=== PATIENT | male | born 1950 | race Asian ===

== ENCOUNTER 2021-11-04 19:44 | Inpatient (IN) | payer BC ==
[~2021-11-04] VITALS: Ht 170.2 cm; Wt 75.3 kg
--- NOTE | 2021-11-04 19:50 | NUR ---
Placed in room 8 . Placed on director cardiac, blood pressure machine and pulse oximeter. To gown for exam. Side rails up. Report given to ERIKA WATERS(REG).
[2021-11-04 19:56] VITALS: BP_SYST 133
[2021-11-04] MEDS ORDERED: NACL 0.9% 1,000 ML IV ONE (20:15)
[2021-11-04] MEDS ORDERED: ACETAMINOPHEN 325 MG TABLET PO ONE (20:15)
[2021-11-04] MEDS ORDERED: cefTRIAXone 1 GM IVPB PREMIX 50 ML IV ONE (20:15)
[2021-11-04 20:42] LABS: RED BLOOD CELL COUNT(AUTO) 2.25 MIL/uL (4.2-6.2); RED CELL DISTRIBUTION WIDTH 14.7 % (9.0-15.0)
[2021-11-04] MEDS ORDERED: TAMS-11 PO (20:56)
[2021-11-04] MEDS ORDERED: DONE5TAB3 PO (20:56)
[2021-11-04] MEDS ORDERED: OMEP40CA20 PO (20:56)
[2021-11-04] MEDS ORDERED: CELE200C PO (20:56)
[2021-11-04 20:57] LABS: ANION GAP 8 (5-15); CALCIUM 7.9 mg/dL (8.4-11.0); CHLORIDE 93 mmol/L (98-107); CREATININE 1.02 mg/dL (0.55-1.30); GLUCOSE 154 mg/dL (70-99); POTASSIUM 3.4 mmol/L (3.5-5.1); UREA NITROGEN, BLOOD 12 mg/dL (8-21)
--- NOTE | 2021-11-04 21:00 | NUR ---
ERMD at bedside.
[2021-11-04 21:14] LABS: MEAN CORPUSCULAR VOLUME 85 fL (79.0-98.0); PLATELET COUNT (AUTO) 82 K/uL (130-430); WHITE BLOOD COUNT (AUTO) 13.6 K/uL (4.8-10.8)
[2021-11-04 21:15] LABS: GFR AFRICAN AMERICAN 93 mL/min (>90)
[2021-11-04 21:18] LABS: ALANINE AMINOTRANSFERASE 38 U/L (12-78); ALBUMIN 2.2 g/dL (3.4-4.8); ASPARTATE AMINOTRANSFERASE 106 U/L (10-37); TOTAL BILIRUBIN 1.7 mg/dL (0.0-1.0)
[2021-11-04 21:22] LABS: HEMATOCRIT 19.1 % (36-54)
[2021-11-04] MEDS ORDERED: methylPREDNISolone SOD SUCC/PF 62.5 MG/ML VIAL IVP ONE (21:45)
[2021-11-04] MEDS ORDERED: NS 500 ML IV ONE (21:45)
[2021-11-04 21:47] LABS: ATYPICAL LYMPHOCYTES % 5 % (0-0); BAND % (MANUAL) 2 % (0-6); EOSINOPHILS % (MANUAL) 1 % (0-7); LYMPHOCYTES % (MANUAL) 13 % (20-46); MONOCYTES % (MANUAL) 5 % (0-11)
--- NOTE | 2021-11-04 22:18 | NUR ---
Pt taken off NR and placed on 3L NC around 2100. Pt 96% at this time, no resp distress noted. Pt oral temp went from 102.9 to 101.4 1 hr s/p Tylenol admin, ERMD made aware.
[2021-11-04] MEDS ORDERED: D5/0.45 NS 1,000 ML IV ONE (22:45)
--- NOTE | 2021-11-04 22:47 | NUR ---
Pt swabbed for MRSA and swab sent to lab.
--- NOTE | 2021-11-04 22:47 | NUR ---
Admitting Dr. May refused to input his own orders, gave telephone admitting orders to RN. Orders input.
--- NOTE | 2021-11-04 22:48 | NUR ---
Admit bed requested Patient will be admitted to care of . Admitted to ICU unit. Diagnosis SOB, fever, ALOC Inpatient (Yes or No) yes Observation (Yes or No) no Orientation concerns or request close to nursing station (Yes or No) yes Covid Status negative On vent or bipap no Isolation requirements no Needs a sitter no From Home (Yes or if No enter name of facility) yes Requires Dialysis (Yes or No) no Med Rec Completed (Yes of No) pending
[2021-11-04 23:00] LABS: INR 1.1 (0.80-1.20); PROTHROMBIN TIME 10.8 SECS (9.5-12.5)
--- NOTE | 2021-11-04 23:22 | NUR ---
Informed consent signed for PRBC transfusion d/t low hematocrit. Type and screen collected by laboratory mechanic helper.
[2021-11-05] VITALS (16 sets, daily range): BP systolic 109–134
[2021-11-05 02:22] LABS: BILIRUBIN,URINE NEGATIVE (NEGATIVE); BLOOD, URINE NEGATIVE (NEGATIVE); CLARITY/URINE CLEAR (CLEAR); COLOR,URINE YELLOW (YELLOW); GLUCOSE,URINE NEGATIVE (NEGATIVE); KETONES,URINE TRACE (NEGATIVE); LEUKOCYTE ESTERASE ,URINE NEGATIVE (NEGATIVE); NITRITE, URINE NEGATIVE (NEGATIVE); PH,URINE 6.5 (5.0-8.0); PROTEIN URINE NEGATIVE (NEGATIVE); UROBILINOGEN,URINE 0.2 (0.2-1.0)
--- NOTE | 2021-11-05 02:44 | NUR ---
1 unit PRBC started at 0135, no adverse reactions noted. 2nd 20g IV started on right forearm. Pt resting in bed with breathing even and unlabored on 3L NC, 97%.
--- NOTE | 2021-11-05 03:50 | NUR ---
1 unit of PRBC finished at 0340, no reactions noted. VSS.
--- NOTE | 2021-11-05 06:26 | NUR ---
Pt resting in bed with VSS, receiving D5 1/2NS @75cc/hr. Denies pain at this time. Pt noted more oriented than upon arrival. Pt using urinal. at bedside.
--- NOTE | 2021-11-05 08:33 | NUR ---
SBAR REPORT GIVEN TO SUSAN RN FOR CONTINUE OF CARE. PT WAS TRANSPORTED VIA BED WITH RN AND EMT. PT A&OX3, NO DISTRESS NOTED. AT BEDSIDE WITH PT.
--- NOTE | 2021-11-05 09:00 | NUR ---
Report received from JT Ortiz for continuity of care. Patient in stable condition. Arrived by sarahyrbear. Alert and oriented x4. Respiration even and unlabored. Patient is ambulatory with steady gait to hospital bed. IV fluids running as noted. Patient belongings accounted for. No skin issues noted. Oriented patient to hospital unit. Vital signs stable. No c/o pain. Patient on oxygen 3L NC and O2 saturation is 96%. Will continue to monitor. Call light within reach.
[2021-11-05 09:13] LABS: HEMATOCRIT 25.1 % (36-54); MEAN CORPUSCULAR VOLUME 84 fL (79.0-98.0); PLATELET COUNT (AUTO) 78 K/uL (130-430); RED BLOOD CELL COUNT(AUTO) 2.99 MIL/uL (4.2-6.2); RED CELL DISTRIBUTION WIDTH 14.7 % (9.0-15.0); WHITE BLOOD COUNT (AUTO) 16.1 K/uL (4.8-10.8)
--- NOTE | 2021-11-05 10:29 | NUR ---
Spoke with Dr. aCbrera, COLE, regarding situation. No new orders at this time.
[2021-11-05 10:30] LABS: BASOPHILS % (AUTO) 0.3 % (0.0-2.0); LYMPHOCYTES # (AUTO) 2.1 K/uL (1.0-5.5); LYMPHOCYTES % (AUTO) 12.6 % (20.5-51.5); NEUTROPHILS # (AUTO) 8.9 K/uL (1.8-7.7)
[2021-11-05 10:31] LABS: MONOCYTES # (AUTO) 5.5 K/uL (0.0-1.0)
[2021-11-05] MEDS: NACL 0.9% 1,000 ML IV SCH ×2 (10:45→11:05)
--- NOTE | 2021-11-05 11:20 | NUR ---
Spoke with Dr. Boo regarding clarification of orders. New orders noted
[2021-11-05] MEDS: D5NS 1,000 ML IV SCH ×3 (11:27→22:25)
[2021-11-05 11:39] LABS: CALCIUM 7.7 mg/dL (8.4-11.0); CREATININE 0.88 mg/dL (0.55-1.30); PHOSPHORUS 2.7 mg/dL (2.7-4.5); POTASSIUM 3.4 mmol/L (3.5-5.1)
[2021-11-05] MEDS: ALBUMIN HUMAN 25% 100 ML IV SCH ×3 (11:40→22:26)
[2021-11-05] MEDS: INSULIN REGULAR, HUMAN 100 UNITS/ML, 3 ML VIAL (humuLIN R) SUBCUT PRN ×3 (11:49→21:14)
[2021-11-05 11:50] LABS: THYROID STIMULATING HORMONE 0.28 uIu/mL (0.34-4.82); URIC ACID 2.8 mg/dL (2.4-7.0)
--- NOTE | 2021-11-05 12:00 | NUR ---
Spoke with Dr. May regarding lab values and patient status. New orders noted and carried out.
--- NOTE | 2021-11-05 12:21 | NUR ---
Paged Dr. May regarding lab results and orders.
[2021-11-05] MEDS ORDERED: POTASSIUM CHLORIDE 20 MEQ TAB.PRT.SR PO ONE (13:00)
[2021-11-05 13:33] LABS: BILIRUBIN,URINE NEGATIVE (NEGATIVE); BLOOD, URINE NEGATIVE (NEGATIVE); CLARITY/URINE CLEAR (CLEAR); COLOR,URINE YELLOW (YELLOW); GLUCOSE,URINE 2+ (NEGATIVE); KETONES,URINE TRACE (NEGATIVE); LEUKOCYTE ESTERASE ,URINE NEGATIVE (NEGATIVE); NITRITE, URINE NEGATIVE (NEGATIVE); PROTEIN URINE TRACE (NEGATIVE)
[2021-11-05] MEDS ORDERED: PIPERACILLIN/TAZO 3.375/DEX-IS 50 ML IV ONE (14:15)
[2021-11-05 14:50] LABS: BACTERIA,URINE FEW /HPF (None Seen); RBC,URINE 0-3 /HPF (0-3); WBC,URINE 0-3 /HPF (0-3)
[2021-11-05 16:03] LABS: NEUTROPHILS % (AUTO) 54.1 % (40.0-70.0)
--- NOTE | 2021-11-05 17:53 | NUR ---
CONSULTATION PAGED/CALLED Reason for Consultation: LOW HEMOGLOBIN, SOB, FEVER Person Who was Notified: ANDRE Consulting Physician: DR HINKLE Cloth Spreader Screen Printing Specialty: HEMATOLOGY Ordering Physician: DR TRAVIS
[2021-11-05] MEDS: PIPERACILLIN/TAZO 3.375/DEX-IS 50 ML IV SCH (17:58)
--- NOTE | 2021-11-05 19:49 | NUR ---
Report given to shift lab technician RN for continuity of care. Patient in stable condition. No distress noted.
[2021-11-06] VITALS (31 sets, daily range): BP systolic 93–184
[2021-11-06] MEDS ORDERED: ETOMIDATE 20 MG/ 10 ML VIAL (AMIDATE) ONE
[2021-11-06] MEDS ORDERED: ROCURONIUM BROMIDE 10 MG/ML (ZEMURON) ONE
[2021-11-06] MEDS: PIPERACILLIN/TAZO 3.375/DEX-IS 50 ML IV SCH ×5 (00:37→23:30)
--- NOTE | 2021-11-06 03:50 | NUR ---
pATIENT STILL HAS SOB ON EXERTION. ENCOURAGED TO GET SOME REST AND CALM DOWN. PATIENT ABLE TO VERBALIZED UNDERSTANDING .
--- NOTE | 2021-11-06 04:15 | NUR ---
DR. SHENG DE ANDA PAGED AT THIS TIME FOR ORDERS. SPOKE WITH QUENTIN AT THE EXCHANGE.
--- NOTE | 2021-11-06 04:20 | NUR ---
PATIENT HAS SHORTNESS OF BREATH, PAGED RESPIRATORY THERAPIST AND INCREASED THE O2 OF THE PATIENT. PAGED TWICE AND WAITING FOR HIM TO CALL BACK. HOB ELEVATED OF THE PATIENT. HR AND BLOOD PRESSURES GOING UP. NO PRN FOR ANTI-ANXIETY ORDERED. WAITING FOR THE TO CALL BACK. BLOOD PRESSURE 169/90. HR 124- 136/MIN.
--- NOTE | 2021-11-06 04:52 | NUR ---
DR. PATRICIO 2ND PAGE TO FOR ORDERS. SPOKE WITH NASEEM AT THE EXCHANGE.
[2021-11-06] MEDS ORDERED: DEXMEDETOMIDINE HCL 200 MCG in NS 48 ML IV PRN (05:15)
--- NOTE | 2021-11-06 05:15 | NUR ---
DR. PATRICIO CALLED BACK, MADE AWARE OF PATIENT'S SHORTNESS OF BREATHING, TACHYCARDIA AND ELEVATED BLOOD PRESSURE PLUS PATIENT IS VERY ANXIOUS. ORDERED TO START PRECEDEX. NO ATIVAN NOR PAIN MEDICATION ORDERED.
[2021-11-06] MEDS ORDERED: DEXMEDETOMIDINE HCL 200 MCG/2 ML VIAL IV ONE (05:21)
--- NOTE | 2021-11-06 05:51 | NUR ---
DR. THADDEUS DE ANDA PAGED AT THIS TIME FOR ORDERS. SPOKE WITH AMARA AT THE EXCHANGE.
--- NOTE | 2021-11-06 06:55 | NUR ---
RT NOTES Found pt tachypneic 50S and tachycardic, high 140s. Placed on bipap /6 BUR 20 100% FIO2. Improvement noted. RR 44 H.R 130. Alarms set and audible. Bipap to red outlet.
--- NOTE | 2021-11-06 06:59 | NUR ---
DR. STEPHANIE DE ANDA MADE AWARE OF PT CONDITION. HR 140S, BP 162/88, PT WITH AUDIBLE CRACKLES AND SHOWING S/S RESPIRATORY DISTRESS. PER MD PLACE PT ON BIPAP AND GIVE LASIX 40MG IVP X1 NOW. WILL CARRY OUT ORDERED.
[2021-11-06] MEDS ORDERED: FUROSEMIDE 40 MG/4 ML VIAL IVP ONE (07:00)
[2021-11-06] MEDS ORDERED: FUROSEMIDE 40 MG/4 ML VIAL ONE (07:02)
[2021-11-06] MEDS: D5NS 1,000 ML IV SCH ×2 (07:05→17:42)
--- NOTE | 2021-11-06 07:20 | NUR ---
RT NOTES (post lasix) Pt continue to tolerate bipap. RR 33 H.R 110.
[2021-11-06 07:36] LABS: BASOPHILS # (AUTO) 0.2 K/uL (0.0-0.2); BASOPHILS % (AUTO) 0.7 % (0.0-2.0); EOSINOPHILS % (AUTO) 0.1 % (0.0-4.0); HEMATOCRIT 23.5 % (36-54); LYMPHOCYTES # (AUTO) 2.5 K/uL (1.0-5.5); MEAN CORPUSCULAR VOLUME 88 fL (79.0-98.0); MONOCYTES # (AUTO) 4.8 K/uL (0.0-1.0); NEUTROPHILS # (AUTO) 13.4 K/uL (1.8-7.7); PLATELET COUNT (AUTO) 76 K/uL (130-430); RED BLOOD CELL COUNT(AUTO) 2.68 MIL/uL (4.2-6.2); RED CELL DISTRIBUTION WIDTH 15.5 % (9.0-15.0); RETICULOCYTE COUNT 5.2 % (0.5-1.5); WHITE BLOOD COUNT (AUTO) 20.8 K/uL (4.8-10.8)
[2021-11-06 07:40] LABS: ALBUMIN 2.8 g/dL (3.4-4.8); CALCIUM 7.9 mg/dL (8.4-11.0); CREATININE 0.85 mg/dL (0.55-1.30); POTASSIUM 3.6 mmol/L (3.5-5.1); TOTAL BILIRUBIN 1.3 mg/dL (0.0-1.0)
[2021-11-06 08:21] LABS: NEUTROPHILS % (AUTO) 64.2 % (40.0-70.0)
[2021-11-06] MEDS ORDERED: OMEPRAZOLE Non-Formulary 20 MG CAPSULE.DR PO SCH (09:00)
--- NOTE | 2021-11-06 09:25 | NUR ---
LE: 09-DR BROWN AT BEDSIDE TO ASSESS PT FOR RESPIRATORY DISTRESS AND CONFUSION. STATED PT WILL BE INTUBATED DUE TO HIGH RESPIRATORY Rate. 30 ROCURONIUM WAS GIVEN 50 MG VIA IV PUSH. 31 ETOMIDATE WAS GIVEN 20 MG IV PUSH. 35 DR BROWN INTUBATED PT, 7.5 AND 24 AT THE LIP.
[2021-11-06] MEDS ORDERED: PROPOFOL DRIP 100 ML IV ONE (09:29)
--- NOTE | 2021-11-06 09:35 | NUR ---
RT NOTES With BM device with 100% O2, Pt was preoxygenated before being intubated by Dr Pham with 7.5 ETT secured at 24cm lipline. Bilateral b/s/chest rise noted. CO2 detector changed to yellow. Pt was bronch right after intubation, brochial lavage performed, collected, endorsed to lab. JT Ortiz aware. Pt to vent @ 0945 AC 20 450 +5 100%. Sat in the 80s. Dr Pham aware, inserting central line. Ordered to increase PEEP to 8 as long as b/p is stable. Will draw abg. vent to red outlet. Alarms are set and audible. will monitor pt.
[2021-11-06] MEDS ORDERED: MORPHINE 2 MG/ML INJ. SYRINGE IVP PRN (11:15)
[2021-11-06] MEDS ORDERED: NALOXONE HCL 0.4 MG/ML AMP (NARCAN) IVP PRN (11:15)
--- NOTE | 2021-11-06 11:26 | NUR ---
RT NOTES Per dr's order, vent to AC 24 Vt 500, FIO2 to 0.90 per titration order.
--- NOTE | 2021-11-06 11:30 | NUR ---
called Dr Pham to get new orders for pt. pt not tolerating propofol due to low bp. orders were given to start versed and morphine drip and d/c propofol.
[2021-11-06] MEDS: PANTOPRAZOLE SODIUM 40 MG TAB PO SCH (11:52)
[2021-11-06] MEDS: TAMSULOSIN HCL 0.4 MG CAP PO SCH (11:52)
[2021-11-06] MEDS: ACETAMINOPHEN 325 MG TABLET PO PRN (11:52)
[2021-11-06] MEDS ORDERED: NACL 0.9% 500 ML IV SCH (12:45)
--- NOTE | 2021-11-06 13:06 | NUR ---
Blood Smear - Spoke with a associate medical director regarding blood smear ordered by Dr. May. The technologist said she woul dadd it onto the CBC from today and read it and that no order needed to be entered.
[2021-11-06 13:21] LABS: TOTAL IRON BIND. CAPACITY 145 ug/dL (250-450)
[2021-11-06] MEDS ORDERED: HYDROCORTISONE SOD SUCC 100 MG/2 ML VIAL ONE (13:24)
[2021-11-06] MEDS ORDERED: NOREPINEPHRINE 4 MG/4 ML VIAL IV ONE ×4 (13:36→19:24)
--- NOTE | 2021-11-06 14:10 | NUR ---
Dietitian Recommendations * If/when medically appropriate, consider Vital AF 1.2 at 65 ml/hr (goal rate), Free Water Flush: 250 ml Q6h via NGT Provides: 1872 kcal/day, 117 gm protein/day, and 2265 ml free water/day Meets: 95% of estimated caloric needs, 104% of lower end of estimated caloric needs, and 98% of upper end of estimated fluid needs LP, MS, RD Please refer to Nutrition Assessment for details. Addendum: 11/06/21 at [address] Amended: Links added.
[2021-11-06] MEDS: NACL 0.9% 1,000 ML IV SCH ×2 (14:22→21:53)
--- NOTE | 2021-11-06 15:25 | NUR ---
rt and bedside to change fio2 settings from 90 to 60%.
--- NOTE | 2021-11-06 15:30 | NUR ---
RT NOTES Charge nurse made aware of ETT position per CXR result.
--- NOTE | 2021-11-06 15:48 | NUR ---
RT NOTES Per ABG result and titration order, FIO2 TO 0.60. RN RITA made aware. will monitor pt.
--- NOTE | 2021-11-06 16:18 | NUR ---
DR BROWN CALLED TO FOLLOW UP ON PT, STATED LEVOPHED TOO HIGH START PT ON YAMILET AND TITRATE LEVOPHED LOWER THAN .20 MCG. ORDER PLACED WAITING ON PHARMACY.
[2021-11-06] MEDS: VANCOMYCIN HCL 1,000 MG in NS 250 ML IV SCH (17:00)
[2021-11-06] MEDS: MICAFUNGIN SODIUM 100 MG in NS 100 ML IV SCH (17:51)
[2021-11-06 18:49] LABS: BILIRUBIN,URINE NEGATIVE (NEGATIVE); BLOOD, URINE NEGATIVE (NEGATIVE); CLARITY/URINE CLEAR (CLEAR); COLOR,URINE YELLOW (YELLOW); GLUCOSE,URINE 1+ (NEGATIVE); KETONES,URINE NEGATIVE (NEGATIVE); LEUKOCYTE ESTERASE ,URINE NEGATIVE (NEGATIVE); NITRITE, URINE NEGATIVE (NEGATIVE); PROTEIN URINE TRACE (NEGATIVE)
[2021-11-06] MEDS: PHENYLEPHRINE HCL 50 MG in NS 245 ML IV PRN (18:59)
--- NOTE | 2021-11-06 19:10 | NUR ---
Received report from JT Ortiz and assumed patient care.
--- NOTE | 2021-11-06 19:48 | NUR ---
Received critical lab value of procalcitonin (please see emr for further details), will call MD for further instructions.
--- NOTE | 2021-11-06 19:50 | NUR ---
Called Dr. Blackman for further instructions, will wait for call back. Left voicemail in the service call.
[2021-11-06 19:56] LABS: RBC,URINE NONE SEEN /HPF (0-3); WBC,URINE 0-3 /HPF (0-3)
[2021-11-06 19:57] LABS: BACTERIA,URINE None Seen /HPF (None Seen); MUCUS,URINE None Seen /LPF (None Seen)
--- NOTE | 2021-11-06 20:10 | NUR ---
Dr. May called for condition updates, MD is aware of critical lab value of procalcitonin (please see emr for further details), MD is aware of sodium levels in 131 (no changes made done on the current gtt). No additional orders noted at the moment, will reinforce if needed throughout the shift.
--- NOTE | 2021-11-06 20:15 | NUR ---
Dr. Suárez rounded at bedside, provided nursing updates no additional orders noted at the moment, will reinforce if needed throughout the shift.
[2021-11-06] MEDS: MORPHINE SULFATE IN 0.9 % NACL 100 ML IV PRN (21:56)
[2021-11-06] MEDS: MIDAZOLAM IN NACL,ISO-OSMOT/PF 100 ML IV PRN (21:57)
--- NOTE | 2021-11-06 22:32 | NUR ---
Reviewing most recent chest XRAY (11/06/21 at 1130ish, please see emr for further details) it states ET is above 6cm above stephanie. Informed RT at bedside, and is aware of the location of the ET tube, upon assessment patient is taking 400-500 volumes, and saturation ranging from 96-98%. Paged Dr. Malone to inform pulmo., and Dr. Malone called back. MD is aware of the patient's ET location, and current situation of volumes and most current location, as well as vital signs. Per MD Ok to leave ET in place, and obtain chest xray in the AM for further evaluation. No additional orders noted at the moment, MD is aware of NA 131 level, no new orders noted at the moment. Will reinforce if needed throughout the shift. biomedical photographer (Caitlyn) is aware.
[2021-11-06] MEDS: INSULIN REGULAR, HUMAN 100 UNITS/ML, 3 ML VIAL (humuLIN R) SUBCUT PRN (23:36)
[2021-11-07] VITALS (28 sets, daily range): BP systolic 88–143
[2021-11-07] MEDS: PHENYLEPHRINE HCL 50 MG in NS 245 ML IV PRN ×5 (00:17→21:40)
[2021-11-07] MEDS ORDERED: PHENYLEPHRINE HCL 10 MG/ML VIAL (NEOSYNEPHRINE) ONE (01:53)
[2021-11-07] MEDS: D5NS 1,000 ML IV SCH ×2 (02:57→13:15)
--- NOTE | 2021-11-07 03:15 | NUR ---
Changed patient's linens, and performed CHG bath, patient tolerated the big turns. No complications noted at the moment, will reinforce if needed throughout the shift.
[2021-11-07] MEDS: PIPERACILLIN/TAZO 3.375/DEX-IS 50 ML IV SCH ×4 (05:25→23:55)
[2021-11-07] MEDS: VANCOMYCIN HCL 1,000 MG in NS 250 ML IV SCH ×2 (05:25→15:37)
[2021-11-07] MEDS: NACL 0.9% 1,000 ML IV SCH ×2 (06:33→17:15)
[2021-11-07 07:33] LABS: INR 1.2 (0.80-1.20); PROTHROMBIN TIME 11.8 SECS (9.5-12.5)
[2021-11-07 08:06] LABS: FOLATE (FOLIC ACID) 6.3 ng/mL (>3.0)
[2021-11-07 08:47] LABS: HEMATOCRIT 22.3 % (36-54); MEAN CORPUSCULAR VOLUME 88 fL (79.0-98.0); PLATELET COUNT (AUTO) 55 K/uL (130-430); RED BLOOD CELL COUNT(AUTO) 2.52 MIL/uL (4.2-6.2); RED CELL DISTRIBUTION WIDTH 15.5 % (9.0-15.0); WHITE BLOOD COUNT (AUTO) 21.7 K/uL (4.8-10.8)
[2021-11-07 08:50] LABS: ALBUMIN 1.3 g/dL (3.4-4.8); BILIRUBIN,DIRECT 0.5 mg/dL (0.0-0.3); CALCIUM 7.7 mg/dL (8.4-11.0); CREATININE 0.96 mg/dL (0.55-1.30); POTASSIUM 4.2 mmol/L (3.5-5.1); TOTAL BILIRUBIN 1.4 mg/dL (0.0-1.0)
[2021-11-07] MEDS: PANTOPRAZOLE SODIUM 40 MG TAB PO SCH (09:00)
[2021-11-07] MEDS: TAMSULOSIN HCL 0.4 MG CAP PO SCH (09:00)
[2021-11-07] MEDS ORDERED: NACL 0.9% 500 ML IV SCH (12:45)
--- NOTE | 2021-11-07 13:33 | NUR ---
1125 ETT PUSHED IN FROM 25 TO 27CM LL. ANDREA BS, VOLUMES ACHIEVED, CXR DONE, ETT SECURE AND PATENT. DR BROWN AWARE. Addendum: 11/07/21 at 1338 by Zara Moore RT Amended: Links added.
[2021-11-07 15:29] LABS: LYMPHOCYTES % (MANUAL) 8 % (20-46)
[2021-11-07 15:30] LABS: BASOPHILS % (MANUAL) 0 % (0-2); EOSINOPHILS % (MANUAL) 0 % (0-7); MONOCYTES % (MANUAL) 15 % (0-11)
[2021-11-07 15:34] LABS: BLASTS, MANUAL % 10 % (0-0)
[2021-11-07] MEDS: SUCRALFATE 1 GM/10 ML UDC GT SCH (15:34)
[2021-11-07] MEDS: MICAFUNGIN SODIUM 100 MG in NS 100 ML IV SCH (15:35)
[2021-11-07] MEDS: INSULIN REGULAR, HUMAN 100 UNITS/ML, 3 ML VIAL (humuLIN R) SUBCUT PRN (17:21)
--- NOTE | 2021-11-07 19:10 | NUR ---
Received report from JT Florian and assumed patient care.
--- NOTE | 2021-11-07 20:00 | NUR ---
Patient's temperature via axillary is 103F, and via temporal 101.7F, cooling measures are applied and tylenol medication will be given. Will inform MD about the findings, no additional complications noted at the moment.
--- NOTE | 2021-11-07 20:15 | NUR ---
Patient's family members are at bedside, provided nursing updates via online hat cutter. No additional questions noted at the moment, will reinforce if needed throughout the shift.
[2021-11-07] MEDS: ACETAMINOPHEN 325 MG TABLET PO PRN (21:12)
[2021-11-07] MEDS: MORPHINE SULFATE IN 0.9 % NACL 100 ML IV PRN (21:38)
[2021-11-07] MEDS: MIDAZOLAM IN NACL,ISO-OSMOT/PF 100 ML IV PRN (21:39)
--- NOTE | 2021-11-07 22:00 | NUR ---
Patient's temperature is trending up despite tylenol medication given, cooling blanket is on place, and rectal temperature probe is in place. Core temperature is in place, and reading 104F, will continue to monitor temperature and primer charger (Caitlyn) is aware. No additional complications noted at the moment, will reinforce if needed throughout the shift.
[2021-11-08] VITALS (32 sets, daily range): BP systolic 79–128
[2021-11-08] MEDS: INSULIN REGULAR, HUMAN 100 UNITS/ML, 3 ML VIAL (humuLIN R) SUBCUT PRN
[2021-11-08] MEDS: NACL 0.9% 1,000 ML IV SCH ×3 (02:49→22:44)
[2021-11-08] MEDS: PHENYLEPHRINE HCL 50 MG in NS 245 ML IV PRN ×3 (02:50→18:29)
--- NOTE | 2021-11-08 03:33 | NUR ---
Dr. Syed rounded at bedside, MD is aware of patient not having any bowel movement as of yet, will wait for medications to be verified on meditech. MD also made aware of tube feed recommendation of nutrition to change tube feed rate, will make changes on order. No additional orders noted at the moment, will reinforce if needed throughout the shift.
[2021-11-08] MEDS: VANCOMYCIN HCL 1,000 MG in NS 250 ML IV SCH ×2 (05:03→18:00)
[2021-11-08] MEDS: PIPERACILLIN/TAZO 3.375/DEX-IS 50 ML IV SCH (05:03)
[2021-11-08] MEDS: SUCRALFATE 1 GM/10 ML UDC GT SCH ×2 (06:22→17:00)
[2021-11-08] MEDS: ACETAMINOPHEN 325 MG TABLET PO PRN ×3 (08:00→18:52)
[2021-11-08] MEDS: TAMSULOSIN HCL 0.4 MG CAP PO SCH (08:57)
[2021-11-08 09:34] LABS: BASOPHILS # (AUTO) 0.2 K/uL (0.0-0.2); BASOPHILS % (AUTO) 1.4 % (0.0-2.0); EOSINOPHILS % (AUTO) 0.2 % (0.0-4.0); LYMPHOCYTES # (AUTO) 2.8 K/uL (1.0-5.5); LYMPHOCYTES % (AUTO) 19.3 % (20.5-51.5); MEAN CORPUSCULAR VOLUME 90 fL (79.0-98.0); MONOCYTES # (AUTO) 2.8 K/uL (0.0-1.0); MONOCYTES % (AUTO) 19.2 % (1.7-9.3); NEUTROPHILS # (AUTO) 8.8 K/uL (1.8-7.7); NEUTROPHILS % (AUTO) 59.9 % (40.0-70.0); PLATELET COUNT (AUTO) 61 K/uL (130-430); RED BLOOD CELL COUNT(AUTO) 2.28 MIL/uL (4.2-6.2); RED CELL DISTRIBUTION WIDTH 15.9 % (9.0-15.0); WHITE BLOOD COUNT (AUTO) 14.7 K/uL (4.8-10.8)
[2021-11-08 10:11] LABS: INR 1.2 (0.80-1.20); PROTHROMBIN TIME 11.8 SECS (9.5-12.5)
[2021-11-08] MEDS: MEROPENEM 1 GM in NS 100 ML IV SCH ×2 (13:24→21:34)
[2021-11-08 15:07] LABS: HEMATOCRIT 20.4 % (36-54)
[2021-11-08] MEDS: MIDAZOLAM IN NACL,ISO-OSMOT/PF 100 ML IV PRN (15:40)
[2021-11-08] MEDS: MICAFUNGIN SODIUM 100 MG in NS 100 ML IV SCH (17:00)
[2021-11-08 18:11] LABS: ERYTHROCYTE SEDIMENTATION RATE 65 MM/HR (0-15)
[2021-11-08 18:43] LABS: C-REACTIVE PROTEIN QUANT 29.5 mg/dL (0-0.5); CALCIUM 7.3 mg/dL (8.4-11.0); CREATININE 0.9 mg/dL (0.55-1.30); POTASSIUM 3.9 mmol/L (3.5-5.1)
--- NOTE | 2021-11-08 19:10 | NUR ---
Received report from JT Martinez and assumed patient care.
[2021-11-08] MEDS: IPRATROPIUM/ALBUTEROL SULFATE 3 ML AMPUL.NEB (DUONEB) INH SCH (19:55)
--- NOTE | 2021-11-08 20:00 | NUR ---
Patient's core temperature is reading 100F>, cooling blanket and cooling measures are in place, checked patient's skin under blanket and no skin breakdown noted at the moment, and will reinforce if needed throughout the shift. Patient's call light is within reach, unable to comprehend teaching at the moment due to patient being sedated and intubated. Will reinforce if needed throughout the shift.
[2021-11-08] MEDS: HYDROCORTISONE SOD SUCC 100 MG/2 ML VIAL IVP SCH (21:34)
[2021-11-09] VITALS (30 sets, daily range): BP systolic 87–133
[2021-11-09] MEDS: INSULIN REGULAR, HUMAN 100 UNITS/ML, 3 ML VIAL (humuLIN R) SUBCUT PRN ×3 (00:44→18:34)
--- NOTE | 2021-11-09 01:00 | NUR ---
Patient is in process of blood administration per MD order (please see blood administration paperwork for further details), no complications noted at the moment, and will reinforce if needed throughout the shift.
[2021-11-09] MEDS: IPRATROPIUM/ALBUTEROL SULFATE 3 ML AMPUL.NEB (DUONEB) INH SCH ×4 (01:30→19:51)
[2021-11-09] MEDS ORDERED: PHENYLEPHRINE HCL 10 MG/ML VIAL (NEOSYNEPHRINE) ONE (03:27)
[2021-11-09] MEDS: PHENYLEPHRINE HCL 50 MG in NS 245 ML IV PRN (03:32)
[2021-11-09] MEDS: VANCOMYCIN HCL 1,000 MG in NS 250 ML IV SCH ×2 (04:13→17:45)
--- NOTE | 2021-11-09 05:15 | NUR ---
Changed patient's linens, performed CHG bath on patient, and placed cooling blanket under patient with flat sheet on top. Patient tolerated the big turns, no complications noted during the process. Will reinforce if needed throughout the shift.
[2021-11-09] MEDS: MEROPENEM 1 GM in NS 100 ML IV SCH ×3 (05:51→21:51)
[2021-11-09] MEDS: HYDROCORTISONE SOD SUCC 100 MG/2 ML VIAL IVP SCH ×3 (05:51→21:51)
[2021-11-09] MEDS: SUCRALFATE 1 GM/10 ML UDC GT SCH ×2 (06:11→17:42)
[2021-11-09 07:16] LABS: ALBUMIN 1.7 g/dL (3.4-4.8); CALCIUM 7.3 mg/dL (8.4-11.0); CREATININE 0.84 mg/dL (0.55-1.30); PHOSPHORUS 1.8 mg/dL (2.7-4.5); POTASSIUM 4.4 mmol/L (3.5-5.1); TOTAL BILIRUBIN 1.6 mg/dL (0.0-1.0)
[2021-11-09 08:15] LABS: HEMATOCRIT 23.9 % (36-54); MEAN CORPUSCULAR VOLUME 89 fL (79.0-98.0); RED CELL DISTRIBUTION WIDTH 16.1 % (9.0-15.0); WHITE BLOOD COUNT (AUTO) 19.3 K/uL (4.8-10.8)
[2021-11-09] MEDS: NACL 0.9% 1,000 ML IV SCH ×2 (09:15→19:15)
--- NOTE | 2021-11-09 09:25 | NUR ---
Pt noted to have a DTI to coccyx. Photo taken and foam dressing applied. Repositioned to side with pillow suppoer. Feet lifted off bed with pillows. Pt tolerating titration down of the neosynephrine. Huong urine in the logan bag. CVP 4 with good waveform.
[2021-11-09 09:39] LABS: PLATELET COUNT (AUTO) 44 K/uL (130-430)
--- NOTE | 2021-11-09 13:15 | NUR ---
Suctioned a large amount of tube feeding from pts mouth. Tube feeding residual 200ccc and tube feeds turned off. HOB up.
[2021-11-09 13:19] LABS: ERYTHROCYTE SEDIMENTATION RATE 58 MM/HR (0-15)
[2021-11-09 14:26] LABS: INR 1.3 (0.80-1.20); PROTHROMBIN TIME 12.8 SECS (9.5-12.5)
[2021-11-09 14:44] LABS: BAND % (MANUAL) 1 % (0-6); BASOPHILS % (MANUAL) 0 % (0-2); EOSINOPHILS % (MANUAL) 0 % (0-7); LYMPHOCYTES % (MANUAL) 12 % (20-46); MONOCYTES % (MANUAL) 23 % (0-11); OTHER CELLS,MANUAL % 6 (0-0)
[2021-11-09] MEDS: TAMSULOSIN HCL 0.4 MG CAP PO SCH (14:55)
[2021-11-09 15:17] LABS: C-REACTIVE PROTEIN QUANT 22.3 mg/dL (0-0.5)
--- NOTE | 2021-11-09 15:40 | NUR ---
RT NOTES Found FIO2 @0.50 sat 88%. Pt. appears distress, paradoxical breathing noted. RN aware. Increased FIO2 TO 0.60, Sat improved to 91%
[2021-11-09] MEDS ORDERED: LIDOCAINE 2%, 20 ML MDV ONE (15:55)
--- NOTE | 2021-11-09 17:14 | NUR ---
RT NOTES Saturation on 60% is currently 94-95%.
[2021-11-09] MEDS: MICAFUNGIN SODIUM 100 MG in NS 100 ML IV SCH (17:44)
--- NOTE | 2021-11-09 19:45 | NUR ---
Received report from JT Deluna and assumed patient care.
[2021-11-09 21:06] LABS: MYCOPLASMA PNEUMONIAE IgM <770 U/mL (0-769)
[2021-11-09] MEDS: MORPHINE SULFATE IN 0.9 % NACL 100 ML IV PRN (23:16)
--- NOTE | 2021-11-09 23:59 | NUR ---
Performed CHG bath on patient, patient did not have a bowel movement at the moment, cooling blanket is still under patient, and changed linens as well. No complications noted during the big turns, will reinforce if needed throughout the shift.
[2021-11-10] VITALS (32 sets, daily range): BP systolic 83–120
[2021-11-10] MEDS: INSULIN REGULAR, HUMAN 100 UNITS/ML, 3 ML VIAL (humuLIN R) SUBCUT PRN ×5 (01:03→23:36)
[2021-11-10] MEDS: IPRATROPIUM/ALBUTEROL SULFATE 3 ML AMPUL.NEB (DUONEB) INH SCH ×4 (02:16→19:46)
[2021-11-10] MEDS: VANCOMYCIN HCL 1,000 MG in NS 250 ML IV SCH ×2 (04:32→17:08)
[2021-11-10] MEDS: NACL 0.9% 1,000 ML IV SCH ×2 (04:33→15:15)
[2021-11-10] MEDS: PHENYLEPHRINE HCL 50 MG in NS 245 ML IV PRN (04:41)
[2021-11-10] MEDS: MIDAZOLAM IN NACL,ISO-OSMOT/PF 100 ML IV PRN (04:41)
[2021-11-10] MEDS: MEROPENEM 1 GM in NS 100 ML IV SCH ×3 (05:36→22:47)
[2021-11-10] MEDS: HYDROCORTISONE SOD SUCC 100 MG/2 ML VIAL IVP SCH ×3 (05:36→22:47)
[2021-11-10 06:33] LABS: BASOPHILS # (AUTO) 0.2 K/uL (0.0-0.2); BASOPHILS % (AUTO) 0.6 % (0.0-2.0); HEMATOCRIT 23.6 % (36-54); LYMPHOCYTES # (AUTO) 2.7 K/uL (1.0-5.5); LYMPHOCYTES % (AUTO) 7.2 % (20.5-51.5); MEAN CORPUSCULAR VOLUME 91 fL (79.0-98.0); MONOCYTES # (AUTO) 6.3 K/uL (0.0-1.0); MONOCYTES % (AUTO) 16.8 % (1.7-9.3); NEUTROPHILS # (AUTO) 28.4 K/uL (1.8-7.7); NEUTROPHILS % (AUTO) 75.4 % (40.0-70.0); RED CELL DISTRIBUTION WIDTH 16.5 % (9.0-15.0)
--- NOTE | 2021-11-10 07:05 | NUR ---
Received critical report of elevated wbc and low plt, will call MD for further instructions. No additional orders noted at the moment, will reinforce if needed throughout the shift.
[2021-11-10 07:09] LABS: CALCIUM 7.3 mg/dL (8.4-11.0); CREATININE 0.89 mg/dL (0.55-1.30); POTASSIUM 4.4 mmol/L (3.5-5.1)
[2021-11-10 07:11] LABS: PLATELET COUNT (AUTO) 39 K/uL (130-430)
--- NOTE | 2021-11-10 07:15 | NUR ---
Called Dr. Yadira MD is aware of critical lab results, no new orders noted at the moment, and will follow up with Dr. Mcclain regarding dorys cath placement. No new orders noted at the moment, will reinforce if needed throughout the shift.
[2021-11-10] MEDS ORDERED: HEPARIN SODIUM,PORCINE 5,000 UNITS/ML VIAL ONE ×2 (07:51→08:03)
--- NOTE | 2021-11-10 08:35 | NUR ---
RT NOTES sat. currently 99%, titrated FIO2 to 0.30. Will monitor pt.
[2021-11-10] MEDS: TAMSULOSIN HCL 0.4 MG CAP PO SCH (08:45)
[2021-11-10] MEDS: SUCRALFATE 1 GM/10 ML UDC GT SCH ×2 (08:45→17:09)
[2021-11-10 10:13] LABS: WHITE BLOOD COUNT (AUTO) 37.7 K/uL (4.8-10.8)
[2021-11-10] MEDS: DEXMEDETOMIDINE HCL 200 MCG in NS 48 ML IV PRN (10:32)
[2021-11-10] MEDS: MICAFUNGIN SODIUM 100 MG in NS 100 ML IV SCH (17:07)
--- NOTE | 2021-11-10 19:11 | NUR ---
Dr richardson aware of critical labs within 30 minutes of reports from lab WBC and Procalcitonin Dr Mcclain put in right dorys with no troubles Dr Richardson after dorys was inserted believes that pt may need to be screened for leukemia Pt had medium sized wet stool, temp probe inserted back in pt temperature 98.9-100.4 all day with cooling measures pt desaturates at times and often needs 100% fio2 to boost back up 1850 pt put on 50% for desaturation
--- NOTE | 2021-11-10 19:20 | NUR ---
Received report from AM shift RN, and assumed patient care.
--- NOTE | 2021-11-10 23:00 | NUR ---
CT transferred patient to get CT scan. patient is stable
[2021-11-11] VITALS (33 sets, daily range): BP systolic 94–142
[2021-11-11] MEDS: PHENYLEPHRINE HCL 50 MG in NS 245 ML IV PRN (00:43)
[2021-11-11] MEDS: NACL 0.9% 1,000 ML IV SCH ×3 (00:51→21:03)
[2021-11-11] MEDS: IPRATROPIUM/ALBUTEROL SULFATE 3 ML AMPUL.NEB (DUONEB) INH SCH ×4 (00:51→19:25)
[2021-11-11] MEDS: VANCOMYCIN HCL 1,000 MG in NS 250 ML IV SCH ×2 (04:54→17:54)
[2021-11-11] MEDS: MEROPENEM 1 GM in NS 100 ML IV SCH ×3 (05:35→21:03)
[2021-11-11] MEDS: HYDROCORTISONE SOD SUCC 100 MG/2 ML VIAL IVP SCH ×3 (05:36→21:05)
[2021-11-11] MEDS: INSULIN REGULAR, HUMAN 100 UNITS/ML, 3 ML VIAL (humuLIN R) SUBCUT PRN ×5 (05:40→23:48)
[2021-11-11] MEDS: SUCRALFATE 1 GM/10 ML UDC GT SCH ×2 (06:18→17:55)
--- NOTE | 2021-11-11 07:45 | NUR ---
RT NOTES Dr Mcclain roundrena now, aware of low sat overnight and pt's abnormal breathing pattern.
[2021-11-11 08:16] LABS: ALBUMIN 1.4 g/dL (3.4-4.8); CALCIUM 7.9 mg/dL (8.4-11.0); CREATININE 0.83 mg/dL (0.55-1.30); POTASSIUM 4.6 mmol/L (3.5-5.1); TOTAL BILIRUBIN 1.4 mg/dL (0.0-1.0)
[2021-11-11 08:51] LABS: BASOPHILS # (AUTO) 0.4 K/uL (0.0-0.2); BASOPHILS % (AUTO) 1.4 % (0.0-2.0); HEMATOCRIT 22.6 % (36-54); LYMPHOCYTES # (AUTO) 2.6 K/uL (1.0-5.5); LYMPHOCYTES % (AUTO) 10.6 % (20.5-51.5); MEAN CORPUSCULAR VOLUME 92 fL (79.0-98.0); MONOCYTES # (AUTO) 5.5 K/uL (0.0-1.0); MONOCYTES % (AUTO) 22.2 % (1.7-9.3); NEUTROPHILS # (AUTO) 16.3 K/uL (1.8-7.7); NEUTROPHILS % (AUTO) 65.8 % (40.0-70.0); RED BLOOD CELL COUNT(AUTO) 2.46 MIL/uL (4.2-6.2); WHITE BLOOD COUNT (AUTO) 24.8 K/uL (4.8-10.8)
[2021-11-11] MEDS: TAMSULOSIN HCL 0.4 MG CAP PO SCH (09:24)
[2021-11-11 09:26] LABS: PLATELET COUNT (AUTO) 31 K/uL (130-430)
--- NOTE | 2021-11-11 13:46 | NUR ---
Wasted 65ml versed drip with Charge Leo WATERS into pharm waste
--- NOTE | 2021-11-11 16:05 | NUR ---
Spoke to patient's lion who requested patient be transferred to [facility]. I spoke to [facility] transfer center@ [phone], they are not accepting transfers that are family requests because the hospital is at capacity. The patient's niece, Radha, was notified .
--- NOTE | 2021-11-11 18:50 | NUR ---
Family requesting to transfer to [facility] or [facility], Dr Mcclain updated family regarding status and potential leukemia, critical labs given to Dr May
--- NOTE | 2021-11-11 19:20 | NUR ---
Received report from AM shift RN, and assumed patient care.
[2021-11-11] MEDS: MORPHINE SULFATE IN 0.9 % NACL 100 ML IV PRN (19:53)
[2021-11-11] MEDS: DEXMEDETOMIDINE HCL 200 MCG in NS 48 ML IV PRN ×2 (19:54→22:30)
--- NOTE | 2021-11-11 20:33 | NUR ---
Patient's is at bedside, provided nursing updates via family scheduler conveyor. No questions noted at the moment, will reinforce if needed throughout the shift.
[2021-11-12] VITALS (36 sets, daily range): BP systolic 83–148
[2021-11-12] MEDS: IPRATROPIUM/ALBUTEROL SULFATE 3 ML AMPUL.NEB (DUONEB) INH SCH ×3 (02:01→13:55)
--- NOTE | 2021-11-12 03:00 | NUR ---
Performed CHG bath on patient, turned patient and tolerated the big turns. No complications noted at the moment, and will reinforce if needed throughout the shift.
--- NOTE | 2021-11-12 04:30 | NUR ---
Patient's core temperature ranging from 98F, removed the cooling blankets, and tolerated the big turns. No complications noted at the moment will reinforce if needed throughout the shift.
[2021-11-12] MEDS: VANCOMYCIN HCL 1,000 MG in NS 250 ML IV SCH ×2 (04:39→17:00)
[2021-11-12] MEDS: MORPHINE SULFATE IN 0.9 % NACL 100 ML IV PRN ×3 (04:45→14:38)
[2021-11-12] MEDS: MEROPENEM 1 GM in NS 100 ML IV SCH ×3 (05:30→21:23)
[2021-11-12] MEDS: HYDROCORTISONE SOD SUCC 100 MG/2 ML VIAL IVP SCH ×3 (05:30→21:26)
[2021-11-12] MEDS: INSULIN REGULAR, HUMAN 100 UNITS/ML, 3 ML VIAL (humuLIN R) SUBCUT PRN ×2 (05:32→12:27)
[2021-11-12] MEDS: DEXMEDETOMIDINE HCL 200 MCG in NS 48 ML IV PRN (05:58)
[2021-11-12] MEDS: SUCRALFATE 1 GM/10 ML UDC GT SCH ×2 (06:26→16:56)
[2021-11-12 07:49] LABS: MEAN CORPUSCULAR VOLUME 94 fL (79.0-98.0); RED BLOOD CELL COUNT(AUTO) 2.23 MIL/uL (4.2-6.2); RED CELL DISTRIBUTION WIDTH 17.5 % (9.0-15.0); WHITE BLOOD COUNT (AUTO) 21.2 K/uL (4.8-10.8)
--- NOTE | 2021-11-12 08:00 | NUR ---
MEJIA GOMEZ IS IN CHARGE OVF THIS PATIENT, HE IS ONLY MILDLY RESPONSIVE TO STIMULI AND PALE, DECREASED MORPHINE DRIP TO 7MG FROM 17, STOPPED THE PRECIDEX/AWAIT LAB RESULTS//PT NGT RESIDUAL GREATER THAN 400CC, HELP TF, PT AFEBRILE AND EASILY TOLERATING VENGT WITH MILD COUGH/CONTINUE TO TREAT, AWAIT MDS//MW
[2021-11-12 09:14] LABS: HEMATOCRIT 20.9 % (36-54); PLATELET COUNT (AUTO) 20 K/uL (130-430)
[2021-11-12] MEDS: NACL 0.9% 1,000 ML IV SCH (09:47)
[2021-11-12] MEDS: TAMSULOSIN HCL 0.4 MG CAP PO SCH (09:53)
--- NOTE | 2021-11-12 10:08 | NUR ---
SPOKE TO DR HINKLE AND DR VALDOVINOS/ORDERS TAKEN, PT TO BE STARTED ON REGLN NGT RESIDUAL STILL HIGH EVEN AFTER BEING HELP AND ONE UNIT PRBCS ORDERED//DROPPED MORPHINE TO 2MG/H/INCREASED YAMILET TO .3 MICGS PER HOUR//MW
[2021-11-12] MEDS: 0.45% NACL 1,000 ML IV SCH (11:59)
[2021-11-12 12:54] LABS: BAND % (MANUAL) 9 % (0-6); BASOPHILS % (MANUAL) 0 % (0-2); EOSINOPHILS % (MANUAL) 0 % (0-7); LYMPHOCYTES % (MANUAL) 5 % (20-46); MONOCYTES % (MANUAL) 10 % (0-11)
[2021-11-12 12:55] LABS: BLASTS, MANUAL % 5 % (0-0)
[2021-11-12] MEDS: FLUCONAZOLE 200 mg/ NS 100 ML IV SCH (13:36)
[2021-11-12] MEDS: FUROSEMIDE 40 MG/4 ML VIAL IVP SCH ×2 (13:37→21:24)
[2021-11-12] MEDS: MIDAZOLAM IN NACL,ISO-OSMOT/PF 100 ML IV PRN (14:34)
--- NOTE | 2021-11-12 16:00 | NUR ---
ngt residual still very high, kub done, no mention of bowel problem other than non specific gas, no obstruction documented//coninue reglan, pt diuresed well with lasix//had to go up on fio2 before start of versed, nw fio2 back to 40%//MW
--- NOTE | 2021-11-12 16:25 | NUR ---
Nutrition F/U Admitting Diagnosis: SOB, fever, ALOC Reviewed Pertinent Medical/Surgical Hx Medical Record, ICU rounds, RN Medical History Comment: PMH: COVID-19 pneumonia (August-September 2021 per son report), T2DM, and dementia per physician notes. Pt also found w/ sepsis, lactic acidemia, fevers, acute respiratory failure, acute exacerbation of COPD, CAP, r/o aspiration pneumonia, ALOC, anemia, and thrombocytopenia per physician notes Subjective Information RD rounded to ICU this morning and spoke with pts RN. Per RN, patient residuals @ 250mL and patient has been throwing up 2-3 times per shift, so he TF was off. RN reports he will turn TF on at lower rate 35mL later in the morning and continue to check GRV/signs of intolerance. Per ICU rounds, MD considers possible leukemia. 11/12: spoke with RN who stated patient gastric residuals >400mL and pt vomiting again. Per RN, MD starting pt on Reglan to assist with gastric motility. If patient continues with TF intolerance, a change to lower fiber formulary warranted. Patient is s/p intubation 11/[address] LBM documented 11/10 x 1. Current Diet Order/Nutrition Support: Vital AF 1.2 @ 65mL (goal rate) ml/hr, Free Water Flush: 250mL q4 via GT x 3 days Pertinent Medications SSI, D5NS at 100 ml/hr (408 kcal/day), neosynephrine, IV abx Pertinent Labs Na 152 H, BG 231 H, POC BG 214 H, ALB 1.4 L, WBC 24.8 H, Ca 7.9 L, Phos 1.8 L, Mg 2.4 H Height: 5 feet 7.00 inches Weight: 166 pounds/ 75.296 kg Body Mass Index: 26.00 kg/m2 Usual Weight: 180# -- %UBW: 92 [place]/Adjusted Body Weight: 148#/67.3 kg -- %IBW: 112 Recent Weight Change: Yes - Unintentional 14# wt loss/8% wt change within 2 mo Weight Status: Overweight Gastrointestinal Symptoms Vomiting 11/11-11/12 per ICU RNs Usual Diet At Home Regular diet per son report and nursing nutritional screening Skin Integrity Comment: 11/11 Tom 9: Dry scab R arm, L knee; Erythema posterior buttocks Estimated Energy Expenditure (kcals/day) 1971 (PSU d/t critical illness; Ve: 15.3, Tmax: 37.7'C) Estimated Protein Required (g/day) 113-151 (1.5-2 gm/kg CBW d/t critical illness, intubated, sepsis) Estimated Fluid Required (l/day) 1.3-2.3 (25-30 ml/kg CBW d/t GERIAT maintenance) Problem/Etiology/Signs/Symptoms * Increased nutritional needs R/T metabolic demands AEB estimated nutritional requirements for critical illness and elevated WBC lab values (on-going) * EN intolerance r/t suspected GI motility issues a/e/b GRV >400mL, vomiting (New) Expected Outcomes/Goals - Monitor tolerance to EN support w/ goal of pt meeting >80% of estimated Nutritional needs, labs trending WNL, normal GI function, and skin integrity/wt maintenance Dietitian Recommendations * If EN intolerance continues, consider Glucerna 1.5 at 50 ml/hr (goal rate) + 1 Prosource, Free Water Flush: 200 ml Q6h via NGT -- Provides: 1900 kcal/day (1800kcal EN), 114 gm protein/day (99g EN), and 1711 ml free water/day (911 EN) -- Meets: 96% of estimated caloric needs, 101% of lower end of estimated protein needs, and 132% of lower end of estimated fluid needs Follow Up High Risk: F/U in 2-3days
--- NOTE | 2021-11-12 16:28 | NUR ---
Dietitian Recommendations * If EN intolerance continues, consider Glucerna1.5 @50 ml/hr (goal rate) + Prosource, Free Water Flush: 200ml Q6h via NGT - Provides: 1900 kcal/day (1800kcal EN), 114 gm protein/day (99g EN), and 1711 ml free water/day (911 EN) - Meets: 96% of estimated caloric needs, 101% of lower end of estimated protein needs, and 132% of lower end of estimated fluid needs Please refer to nutritional F/U for details, thanks! CC, MPH, RDN
[2021-11-12] MEDS: METOCLOPRAMIDE HCL 10 MG/2 ML VIAL IVP SCH (21:26)
[2021-11-13] VITALS (47 sets, daily range): BP systolic 92–175
[2021-11-13] MEDS: INSULIN REGULAR, HUMAN 100 UNITS/ML, 3 ML VIAL (humuLIN R) SUBCUT PRN ×4 (00:42→19:35)
[2021-11-13] MEDS: MORPHINE SULFATE IN 0.9 % NACL 100 ML IV PRN ×3 (00:48→20:51)
[2021-11-13] MEDS: 0.45% NACL 1,000 ML IV SCH ×3 (01:00→17:00)
[2021-11-13] MEDS: VANCOMYCIN HCL 1,000 MG in NS 250 ML IV SCH ×2 (04:59→17:27)
[2021-11-13] MEDS: HYDROCORTISONE SOD SUCC 100 MG/2 ML VIAL IVP SCH ×3 (05:15→21:17)
[2021-11-13] MEDS: METOCLOPRAMIDE HCL 10 MG/2 ML VIAL IVP SCH ×3 (05:15→21:18)
[2021-11-13] MEDS: MEROPENEM 1 GM in NS 100 ML IV SCH ×3 (05:15→21:17)
[2021-11-13] MEDS: FUROSEMIDE 40 MG/4 ML VIAL IVP SCH ×3 (05:15→21:18)
[2021-11-13] MEDS: SUCRALFATE 1 GM/10 ML UDC GT SCH ×2 (07:00→17:55)
[2021-11-13 07:49] LABS: BASOPHILS # (AUTO) 0.2 K/uL (0.0-0.2); BASOPHILS % (AUTO) 0.9 % (0.0-2.0); EOSINOPHILS % (AUTO) 0.1 % (0.0-4.0); HEMATOCRIT 22.3 % (36-54); LYMPHOCYTES # (AUTO) 2.2 K/uL (1.0-5.5); MEAN CORPUSCULAR VOLUME 93 fL (79.0-98.0); MONOCYTES % (AUTO) 24.4 % (1.7-9.3); NEUTROPHILS # (AUTO) 16.1 K/uL (1.8-7.7); RED BLOOD CELL COUNT(AUTO) 2.39 MIL/uL (4.2-6.2); RED CELL DISTRIBUTION WIDTH 16.6 % (9.0-15.0); WHITE BLOOD COUNT (AUTO) 24.4 K/uL (4.8-10.8)
[2021-11-13 08:34] LABS: NEUTROPHILS % (AUTO) 65.6 % (40.0-70.0); PLATELET COUNT (AUTO) 23 K/uL (130-430)
[2021-11-13] MEDS: IPRATROPIUM/ALBUTEROL SULFATE 3 ML AMPUL.NEB (DUONEB) INH SCH ×3 (08:36→19:42)
[2021-11-13] MEDS: PHENYLEPHRINE HCL 50 MG in NS 245 ML IV PRN ×2 (09:34→20:33)
[2021-11-13] MEDS: TAMSULOSIN HCL 0.4 MG CAP PO SCH (10:00)
[2021-11-13 10:45] LABS: ALBUMIN 1.2 g/dL (3.4-4.8); CALCIUM 7.5 mg/dL (8.4-11.0); CREATININE 0.95 mg/dL (0.55-1.30); POTASSIUM 4.7 mmol/L (3.5-5.1); TOTAL BILIRUBIN 1.7 mg/dL (0.0-1.0)
--- NOTE | 2021-11-13 12:05 | NUR ---
RT NOTES Found pt with low sat. 89%, increased work of breathing, rn made aware. FIO2 to 0.50, improvement noted.
[2021-11-13] MEDS: ACETAMINOPHEN 325 MG TABLET PO PRN ×2 (13:03→20:10)
[2021-11-13] MEDS: ALBUMIN HUMAN 25% 100 ML IV SCH ×2 (13:04→20:30)
[2021-11-13] MEDS: FLUCONAZOLE 200 mg/ NS 100 ML IV SCH (13:15)
--- NOTE | 2021-11-13 13:45 | NUR ---
RT NOTES FIO2 back to 0.40. RN made aware
[2021-11-13] MEDS ORDERED: METOCLOPRAMIDE HCL 10 MG/2 ML VIAL IVP SCH (14:00)
[2021-11-13] MEDS: DEXMEDETOMIDINE HCL 200 MCG in NS 48 ML IV PRN (17:00)
[2021-11-14] VITALS (31 sets, daily range): BP systolic 101–176
[2021-11-14] MEDS: INSULIN REGULAR, HUMAN 100 UNITS/ML, 3 ML VIAL (humuLIN R) SUBCUT PRN ×2 (00:36→06:39)
[2021-11-14] MEDS: 0.45% NACL 1,000 ML IV SCH (03:00)
[2021-11-14] MEDS: IPRATROPIUM/ALBUTEROL SULFATE 3 ML AMPUL.NEB (DUONEB) INH SCH ×4 (03:12→19:56)
[2021-11-14] MEDS: ALBUMIN HUMAN 25% 100 ML IV SCH (04:28)
[2021-11-14] MEDS: ACETAMINOPHEN 325 MG TABLET PO PRN ×2 (04:29→13:27)
[2021-11-14] MEDS: DEXMEDETOMIDINE HCL 200 MCG in NS 48 ML IV PRN ×3 (04:39→22:22)
[2021-11-14] MEDS ORDERED: DEXMEDETOMIDINE HCL 200 MCG/2 ML VIAL IV ONE ×2 (04:41→10:05)
[2021-11-14] MEDS: VANCOMYCIN HCL 1,000 MG in NS 250 ML IV SCH ×2 (05:00→18:10)
[2021-11-14] MEDS: MEROPENEM 1 GM in NS 100 ML IV SCH ×3 (06:37→22:00)
[2021-11-14] MEDS: FUROSEMIDE 40 MG/4 ML VIAL IVP SCH (06:37)
[2021-11-14] MEDS: METOCLOPRAMIDE HCL 10 MG/2 ML VIAL IVP SCH ×3 (06:37→22:00)
[2021-11-14] MEDS: HYDROCORTISONE SOD SUCC 100 MG/2 ML VIAL IVP SCH ×3 (06:38→22:00)
[2021-11-14] MEDS: SUCRALFATE 1 GM/10 ML UDC GT SCH (07:00)
[2021-11-14 07:02] LABS: NEUTROPHILS # (AUTO) 13.1 K/uL (1.8-7.7)
[2021-11-14 08:01] LABS: BASOPHILS # (AUTO) 0.2 K/uL (0.0-0.2); BASOPHILS % (AUTO) 1.2 % (0.0-2.0); LYMPHOCYTES # (AUTO) 1.9 K/uL (1.0-5.5); LYMPHOCYTES % (AUTO) 10.4 % (20.5-51.5); MEAN CORPUSCULAR VOLUME 96 fL (79.0-98.0); MONOCYTES # (AUTO) 2.8 K/uL (0.0-1.0); MONOCYTES % (AUTO) 15.5 % (1.7-9.3); RED CELL DISTRIBUTION WIDTH 16.5 % (9.0-15.0); WHITE BLOOD COUNT (AUTO) 17.9 K/uL (4.8-10.8)
--- NOTE | 2021-11-14 08:25 | NUR ---
RT NOTES Pt's sat 90-91% on 70%, Dr Mcclain at bedside speaking to family
[2021-11-14] MEDS ORDERED: 0.45% NS 1,000 ML IV ONE (09:00)
[2021-11-14 09:06] LABS: PLATELET COUNT (AUTO) 12 K/uL (130-430); RED BLOOD CELL COUNT(AUTO) 1.67 MIL/uL (4.2-6.2)
[2021-11-14 09:14] LABS: NEUTROPHILS % (AUTO) 72.9 % (40.0-70.0)
[2021-11-14 09:21] LABS: CALCIUM 7.1 mg/dL (8.4-11.0); CREATININE 1.06 mg/dL (0.55-1.30); POTASSIUM 4.3 mmol/L (3.5-5.1)
[2021-11-14 09:25] LABS: INR 1.3 (0.80-1.20); PROTHROMBIN TIME 13.8 SECS (9.5-12.5)
[2021-11-14] MEDS ORDERED: LR 1,000 ML IV ONE (09:30)
[2021-11-14] MEDS: MORPHINE SULFATE IN 0.9 % NACL 100 ML IV PRN ×2 (09:58→22:23)
[2021-11-14] MEDS: 0.45% NS 1,000 ML IV SCH ×2 (11:38→21:45)
[2021-11-14] MEDS: TAMSULOSIN HCL 0.4 MG CAP PO SCH (11:43)
[2021-11-14] MEDS: FLUCONAZOLE 200 mg/ NS 100 ML IV SCH (13:30)
--- NOTE | 2021-11-14 18:08 | NUR ---
Patient has had elevated temp up to 101.6. Measures ordered have been applied. At this time, temp is 100.5. Called Dr Suárez. He said its ok to transfuse PRBC and Platelets as ordered.
--- NOTE | 2021-11-14 21:16 | NUR ---
CALLED PLACED TO DR TRAVIS EXCHANGE @[phone] TO REPORT CURRENT AFIB EPISODE
[2021-11-14] MEDS ORDERED: dilTIAZem HCL IVP 5 MG/ML VIAL IVP ONE (21:30)
--- NOTE | 2021-11-14 21:30 | NUR ---
MD CALL RETURNED CALL AND REQUESTED THAT LEVI QUIROGA AND DR CONTRERAS TO CONSULT
--- NOTE | 2021-11-14 21:45 | NUR ---
1X MED GIVEN CARDIZEM IVP GIVEN CURRENT HR WAS 182, AFTER MED DECREASED TO 120
[2021-11-14] MEDS ORDERED: dilTIAZem HCL IVP 5 MG/ML VIAL ONE (22:09)
--- NOTE | 2021-11-14 23:00 | NUR ---
BLOOD PRODUCT PRBC'S TRANSFUSION COMPLETED, PT TOLERATED WELL
[2021-11-15] VITALS (35 sets, daily range): BP systolic 68–144
--- NOTE | 2021-11-15 | NUR ---
BS RESULT BS WAS 197 NO INSULIN COVERAGE
[2021-11-15] MEDS ORDERED: PHENYLEPHRINE HCL 10 MG/ML VIAL (NEOSYNEPHRINE) ONE ×2 (02:40→09:01)
[2021-11-15] MEDS: PHENYLEPHRINE HCL 50 MG in NS 245 ML IV PRN ×3 (02:51→19:02)
[2021-11-15] MEDS: DEXMEDETOMIDINE HCL 200 MCG in NS 48 ML IV PRN ×7 (02:53→22:28)
--- NOTE | 2021-11-15 04:15 | NUR ---
PLATELETS GIVEN PT IS TOLERATED TRANSFUSION
--- NOTE | 2021-11-15 05:30 | NUR ---
PLATELETS PLATELETS FINISHED PT TOLERATED
[2021-11-15] MEDS: VANCOMYCIN HCL 1,000 MG in NS 250 ML IV SCH (06:10)
[2021-11-15] MEDS: METOCLOPRAMIDE HCL 10 MG/2 ML VIAL IVP SCH ×3 (06:10→22:26)
[2021-11-15] MEDS: MEROPENEM 1 GM in NS 100 ML IV SCH ×3 (06:10→22:24)
[2021-11-15] MEDS: 0.45% NS 1,000 ML IV SCH (06:11)
[2021-11-15] MEDS: HYDROCORTISONE SOD SUCC 100 MG/2 ML VIAL IVP SCH ×3 (06:12→22:26)
[2021-11-15] MEDS: SUCRALFATE 1 GM/10 ML UDC GT SCH (07:00)
[2021-11-15 07:21] LABS: MEAN CORPUSCULAR VOLUME 97 fL (79.0-98.0); RED CELL DISTRIBUTION WIDTH 16.9 % (9.0-15.0); WHITE BLOOD COUNT (AUTO) 26.3 K/uL (4.8-10.8)
--- NOTE | 2021-11-15 08:00 | NUR ---
Recieved patient sedated on Precedex gtt, on Tenzin drip and MS drip, oral ETT to vent with AC node and stats 98. SR at 90, NGT clamped at FC draining urine. AM assessment done and charted. and eldest son Tarun at the bedside [phone]. Updated them on patient's grave condition. They verbalized patient is very critical at this time. At 0830 BP dropped in the 70s. Spoke to doctor Yadira and obtained order for Levophed drip. Orders carried out. Continue to monitor patient closely.
[2021-11-15] MEDS: IPRATROPIUM/ALBUTEROL SULFATE 3 ML AMPUL.NEB (DUONEB) INH SCH ×3 (08:04→19:48)
[2021-11-15] MEDS ORDERED: NOREPINEPHRINE BITARTRATE 4 MG in D5W 246 ML IV PRN (08:30)
[2021-11-15] MEDS ORDERED: NOREPINEPHRINE 4 MG/4 ML VIAL IV ONE (08:39)
[2021-11-15] MEDS: TAMSULOSIN HCL 0.4 MG CAP PO SCH (09:00)
[2021-11-15 09:18] LABS: RED BLOOD CELL COUNT(AUTO) 1.91 MIL/uL (4.2-6.2)
[2021-11-15 09:21] LABS: HEMATOCRIT 18.5 % (36-54)
[2021-11-15 09:22] LABS: PLATELET COUNT (AUTO) 37 K/uL (130-430)
[2021-11-15 09:52] LABS: CREATININE 1.08 mg/dL (0.55-1.30); POTASSIUM 5.1 mmol/L (3.5-5.1)
--- NOTE | 2021-11-15 10:00 | NUR ---
Patient sinus tach 160. Doctor Spears at the bedside and aware of tachycardia and hypotension episodes. MD spoke to son on the phone and they are aware of poor prognosis at this time. Sodium 166, started D5W at 100 mL/hr per MD order. Doctor Spears stating to continue sedation drips and current treatment plans as ordered. Will continue to monitor patient closely.
[2021-11-15 10:09] LABS: CALCIUM 6.8 mg/dL (8.4-11.0)
[2021-11-15] MEDS: MORPHINE SULFATE IN 0.9 % NACL 100 ML IV PRN ×2 (10:40→22:29)
[2021-11-15] MEDS: D5W 1,000 ML IV SCH ×2 (10:44→20:30)
[2021-11-15] MEDS: INSULIN REGULAR, HUMAN 100 UNITS/ML, 3 ML VIAL (humuLIN R) SUBCUT PRN ×2 (12:07→17:12)
--- NOTE | 2021-11-15 12:25 | NUR ---
Nutrition F/U Admitting Diagnosis: SOB, fever, ALOC Reviewed Pertinent Medical/Surgical Hx Primary RN Medical Record Medical History Comment: PMH: COVID-19 pneumonia (August-September 2021 per son report), T2DM, and dementia per physician notes. Pt also found w/ sepsis, lactic acidemia, fevers, acute respiratory failure, acute exacerbation of COPD, CAP, r/o aspiration pneumonia, ALOC, anemia, and thrombocytopenia per physician notes Per EMR review 11/15: pt continues intubated/sedated/unresponsive, possible leukemia, CHF, pancytopenia, pneumonia, sepsis, unstable condition Subjective Information: RD rounded to ICU and spoke w/ pt's primary RN. She reported that pt's TF has been off d/t high GRV >400; currently receiving 1 unit of platelets and afterwards, 1 unit of PRBCs. She also reported that pt has 2+ generalized edema; may also have multiorgan failure -- family has been advised of pt's poor prognosis by physicians ; pt remains full code at this time. RD witnessed TF Vital AF 1.2 hung but not infusing. Per EMR review, pt continues intubated/sedated; NGT to R nares; Vital AF 1.2 not infusing 11/15; GRV: 500 ml 11/15; abd is soft and non-distended w/ active bowel sounds; LBM x1 11/11. Pt is not meeting optimal nutritional needs. Change of TF formula is not warranted at this time d/t unstable condition. Current Diet Order/Nutrition Support: Vital AF 1.2 at 25 ml/hr (goal rate) ml/hr, Free Water Flush: 150 q4h via NGT x2 days Pertinent Medications: vancomycin, morphine, reglan, solu-cortef Pertinent Labs: Na 166 H, BG 228 H, POC BG 199 H, ALB 1.2 L, WBC 26.3 H, Ca 7.9 L, Phos 1.8 L, Mg 3 H, Plt 37 L, Hgb (pending 11/15), Hct 18.5 L Height: 5'7" Weight: 166#/75.296 kg Body Mass Index: 26 kg/m2 (normal for GERIAT age) Usual Weight: 180# %UBW: 92 [place]/Adjusted Body Weight: 148#/67.3 kg %IBW: 112 Recent Weight Change: Yes -- Unintentional 14# wt loss/8% wt change within 2 mo Gastrointestinal Symptoms No longer V per RN report 10/2 Usual Diet At Home Regular diet per son report and nursing nutritional screening Skin Integrity Comment: Tom scale: 8; no PIs noted per EMR review NEW Estimated Energy Expenditure (kcals/day) 2024 (PSU d/t critical illness; Ve: 11.6, Tmax: 38.7'C) Estimated Protein Required (g/day) 113-151 (1.5-2 gm/kg CBW d/t critical illness, intubated, sepsis) NEW Estimated Fluid Required (l/day) Per physician d/t CHF Problem/Etiology/Signs/Symptoms * Increased nutritional needs R/T metabolic demands AEB estimated nutritional requirements for critical illness and elevated WBC lab values. *Ongoing * EN intolerance r/t suspected GI motility issues a/e/b GRV >400mL, vomiting. *Ongoing, no longer vomiting, however, high GRV Expected Outcomes/Goals - Monitor tolerance to EN support w/ goal of pt meeting >80% of estimated Nutritional needs, labs trending WNL, normal GI function, and skin integrity/wt maintenance Dietitian Recommendations * If/when medically appropriate, consider resuming current TF prescription: Vital AF 1.2 at 25 ml/hr (goal rate) ml/hr, Free Water Flush: 150 q4h via NGT Provides: 720 kcal/day, 45 gm protein/day, and 487 ml free water/day Meets: 36% of lower end of estimated caloric needs and 40% of lower end of estimated protein needs * Continue Reglan for improved gut motility * Nutrition Consult if pt's condition improves and modification of TF is warranted Follow Up Moderate Risk: F/U in 3-5 days
--- NOTE | 2021-11-15 12:35 | NUR ---
Dietitian Recommendations * If/when medically appropriate, consider resuming current TF prescription: Vital AF 1.2 at 25 ml/hr (goal rate) ml/hr, Free Water Flush: 150 q4h via NGT Provides: 720 kcal/day, 45 gm protein/day, and 487 ml free water/day Meets: 36% of lower end of estimated caloric needs and 40% of lower end of estimated protein needs * Continue Reglan for improved gut motility * Nutrition Consult if pt's condition improves and modification of TF is warranted LP, MS, RD Please refer to Nutrition F/U for details.
--- NOTE | 2021-11-15 13:00 | NUR ---
Dr Mcclain at the bedside, spoke to and sister of the pt, pt has very poor prognosis. provided and sister emotional support. all questions answered and addressed.
--- NOTE | 2021-11-15 13:02 | NUR ---
echocardiogram done at the bedside, pt tolerated well.
[2021-11-15] MEDS: FLUCONAZOLE 200 mg/ NS 100 ML IV SCH (13:37)
--- NOTE | 2021-11-15 14:00 | NUR ---
HCT=18.5. 1 unit of prbc given, no blood reaction noted. Also, platelets=37K, administered 1 unit of platelet pheresis. pt tolerated well.
[2021-11-15 15:00] LABS: BAND % (MANUAL) 1 % (0-6); BASOPHILS % (MANUAL) 0 % (0-2); EOSINOPHILS % (MANUAL) 0 % (0-7); LYMPHOCYTES % (MANUAL) 7 % (20-46); MONOCYTES % (MANUAL) 15 % (0-11); OTHER CELLS,MANUAL % 8 (0-0)
--- NOTE | 2021-11-15 20:00 | NUR ---
OPENING NOTE Pt unresponsive and sedated. Pt has L IJ triple lumen for IVF and R IJ Paolo. Pt on Precedex gtt, on Tenzin drip and MS drip, oral ETT to vent with PC node and stats 98. SR at 90, NGT clamped at FC draining clear samreen color urine. is at bedside
--- NOTE | 2021-11-15 20:30 | NUR ---
SCALLOP BINDER AT BEDSIDE AND SCALLOP BINDER AT BEDSIDE PRAYING FOR PT AT THIS TIME
[2021-11-16] VITALS (32 sets, daily range): BP systolic 88–153
[2021-11-16] MEDS ORDERED: PHENYLEPHRINE HCL 10 MG/ML VIAL (NEOSYNEPHRINE) ONE ×2 (01:47→05:46)
[2021-11-16] MEDS: DEXMEDETOMIDINE HCL 200 MCG in NS 48 ML IV PRN ×5 (02:53→23:52)
[2021-11-16] MEDS: PHENYLEPHRINE HCL 50 MG in NS 245 ML IV PRN ×3 (02:54→20:55)
[2021-11-16] MEDS: METOCLOPRAMIDE HCL 10 MG/2 ML VIAL IVP SCH ×3 (05:21→22:55)
[2021-11-16] MEDS: MEROPENEM 1 GM in NS 100 ML IV SCH (05:21)
[2021-11-16] MEDS: HYDROCORTISONE SOD SUCC 100 MG/2 ML VIAL IVP SCH ×3 (05:21→22:54)
[2021-11-16] MEDS: D5W 1,000 ML IV SCH ×3 (05:23→22:54)
[2021-11-16] MEDS ORDERED: DEXMEDETOMIDINE HCL 200 MCG/2 ML VIAL IV ONE (05:53)
[2021-11-16] MEDS: MORPHINE SULFATE IN 0.9 % NACL 100 ML IV PRN ×2 (06:11→20:48)
[2021-11-16] MEDS: SUCRALFATE 1 GM/10 ML UDC GT SCH ×2 (07:00→17:00)
[2021-11-16] MEDS: IPRATROPIUM/ALBUTEROL SULFATE 3 ML AMPUL.NEB (DUONEB) INH SCH ×3 (07:00→19:36)
[2021-11-16 08:25] LABS: BASOPHILS # (AUTO) 0.1 K/uL (0.0-0.2); BASOPHILS % (AUTO) 0.5 % (0.0-2.0); LYMPHOCYTES # (AUTO) 1.4 K/uL (1.0-5.5); LYMPHOCYTES % (AUTO) 7.1 % (20.5-51.5); MEAN CORPUSCULAR VOLUME 98 fL (79.0-98.0); MONOCYTES # (AUTO) 1.5 K/uL (0.0-1.0); NEUTROPHILS # (AUTO) 16.1 K/uL (1.8-7.7); NEUTROPHILS % (AUTO) 84.4 % (40.0-70.0); RED BLOOD CELL COUNT(AUTO) 2.09 MIL/uL (4.2-6.2); RED CELL DISTRIBUTION WIDTH 16.2 % (9.0-15.0)
[2021-11-16 08:43] LABS: ALBUMIN 1.3 g/dL (3.4-4.8); CREATININE 1.52 mg/dL (0.55-1.30); POTASSIUM 5.6 mmol/L (3.5-5.1); TOTAL BILIRUBIN 3.4 mg/dL (0.0-1.0)
[2021-11-16 08:57] LABS: HEMATOCRIT 20.5 % (36-54)
[2021-11-16 08:58] LABS: PLATELET COUNT (AUTO) 17 K/uL (130-430)
[2021-11-16 09:17] LABS: CALCIUM 6.8 mg/dL (8.4-11.0)
[2021-11-16] MEDS ORDERED: CALCIUM GLUCONATE 1 GM/10 ML VIAL IVP ONE ×2 (09:45→12:15)
[2021-11-16] MEDS: TAMSULOSIN HCL 0.4 MG CAP PO SCH (10:08)
[2021-11-16] MEDS: FLUCONAZOLE 200 mg/ NS 100 ML IV SCH (13:59)
[2021-11-16] MEDS: INSULIN REGULAR, HUMAN 100 UNITS/ML, 3 ML VIAL (humuLIN R) SUBCUT PRN ×2 (14:13→19:21)
[2021-11-16] MEDS: LEVOFLOXACIN 250 MG/D5W 50 ML IV SCH (14:15)
[2021-11-16] MEDS ORDERED: CALCIUM GLUCONATE 1 GM in NS 100 ML IV ONE (15:30)
[2021-11-16] MEDS ORDERED: FUROSEMIDE 20 MG/2 ML VIAL IVP ONE (16:45)
--- NOTE | 2021-11-16 20:00 | NUR ---
OPENING NOTE Pt unresponsive and sedated. Pt has L IJ triple lumen for IVF and R IJ Paolo. Pt on Precedex gtt, on Neodrip and Levodrip and Morphine drip, oral ETT to vent with PC node and stats 98. SR at 90, NGT clamped at FC draining clear samreen color urine. All safety precautions are in place freya confine to monitor
--- NOTE | 2021-11-16 21:30 | NUR ---
CALCIUM GLUCONATE MEDICATION WAS GIVEN IV
[2021-11-16] MEDS: NOREPINEPHRINE BITARTRATE 8 MG in D5W 242 ML IV PRN (21:54)
[2021-11-17] VITALS (30 sets, daily range): BP systolic 73–150
[2021-11-17] MEDS: MORPHINE SULFATE IN 0.9 % NACL 100 ML IV PRN ×2 (03:12→23:45)
[2021-11-17] MEDS: PHENYLEPHRINE HCL 50 MG in NS 245 ML IV PRN ×2 (03:16→12:35)
[2021-11-17] MEDS: DEXMEDETOMIDINE HCL 200 MCG in NS 48 ML IV PRN (03:19)
[2021-11-17] MEDS: INSULIN REGULAR, HUMAN 100 UNITS/ML, 3 ML VIAL (humuLIN R) SUBCUT PRN ×4 (05:39→23:46)
[2021-11-17] MEDS: HYDROCORTISONE SOD SUCC 100 MG/2 ML VIAL IVP SCH ×3 (05:47→21:56)
[2021-11-17] MEDS: METOCLOPRAMIDE HCL 10 MG/2 ML VIAL IVP SCH ×3 (05:47→21:57)
[2021-11-17] MEDS: SUCRALFATE 1 GM/10 ML UDC GT SCH ×2 (07:00→18:07)
[2021-11-17] MEDS: IPRATROPIUM/ALBUTEROL SULFATE 3 ML AMPUL.NEB (DUONEB) INH SCH ×3 (07:32→18:57)
[2021-11-17 07:43] LABS: BASOPHILS # (AUTO) 0.1 K/uL (0.0-0.2); HEMATOCRIT 27.8 % (36-54); LYMPHOCYTES # (AUTO) 0.6 K/uL (1.0-5.5); LYMPHOCYTES % (AUTO) 4.5 % (20.5-51.5); MEAN CORPUSCULAR VOLUME 92 fL (79.0-98.0); MONOCYTES # (AUTO) 0.6 K/uL (0.0-1.0); MONOCYTES % (AUTO) 4.4 % (1.7-9.3); NEUTROPHILS # (AUTO) 11.7 K/uL (1.8-7.7); NEUTROPHILS % (AUTO) 90.1 % (40.0-70.0)
[2021-11-17 07:48] LABS: ALBUMIN 1.1 g/dL (3.4-4.8); CREATININE 1.61 mg/dL (0.55-1.30); POTASSIUM 4.2 mmol/L (3.5-5.1); TOTAL BILIRUBIN 4.5 mg/dL (0.0-1.0)
[2021-11-17 07:53] LABS: PLATELET COUNT (AUTO) 12 K/uL (130-430)
--- NOTE | 2021-11-17 08:19 | NUR ---
Paged Dr Suárez for Platelet level of 12.
[2021-11-17 08:42] LABS: CALCIUM 6.6 mg/dL (8.4-11.0)
[2021-11-17] MEDS ORDERED: CALCIUM GLUCONATE 1 GM in NS 100 ML IV ONE (09:15)
[2021-11-17 09:39] LABS: INR 1.4 (0.80-1.20); PROTHROMBIN TIME 14.7 SECS (9.5-12.5)
[2021-11-17] MEDS: TAMSULOSIN HCL 0.4 MG CAP PO SCH (10:20)
[2021-11-17] MEDS: LEVOFLOXACIN 250 MG/D5W 50 ML IV SCH (10:21)
[2021-11-17] MEDS: D5W 1,000 ML IV SCH (12:39)
[2021-11-17] MEDS: ALBUMIN HUMAN 25% 50 ML IV SCH ×3 (12:39→23:44)
[2021-11-17] MEDS: FLUCONAZOLE 200 mg/ NS 100 ML IV SCH (12:40)
[2021-11-17] MEDS ORDERED: PHYTONADIONE 10 MG in NS 50 ML IV ONE (17:00)
[2021-11-17] MEDS ORDERED: PHYTONADIONE 10 MG/ML AMP ONE (18:07)
[2021-11-17] MEDS: DEXMEDETOMIDINE HCL 400 MCG in NS 96 ML IV PRN (21:13)
[2021-11-17] MEDS: ACETAMINOPHEN 325 MG TABLET PO PRN (21:58)
[2021-11-18] VITALS (46 sets, daily range): BP systolic 95–171
[2021-11-18] MEDS: IPRATROPIUM/ALBUTEROL SULFATE 3 ML AMPUL.NEB (DUONEB) INH SCH ×3 (00:38→19:50)
[2021-11-18] MEDS: D5W 1,000 ML IV SCH (01:42)
[2021-11-18] MEDS: DEXMEDETOMIDINE HCL 400 MCG in NS 96 ML IV PRN ×5 (02:28→21:52)
[2021-11-18] MEDS: PHENYLEPHRINE HCL 50 MG in NS 245 ML IV PRN ×2 (02:30→23:44)
[2021-11-18] MEDS: METOCLOPRAMIDE HCL 10 MG/2 ML VIAL IVP SCH ×3 (05:03→21:45)
[2021-11-18] MEDS: HYDROCORTISONE SOD SUCC 100 MG/2 ML VIAL IVP SCH ×3 (05:04→22:00)
[2021-11-18] MEDS: ACETAMINOPHEN 325 MG TABLET PO PRN (05:04)
[2021-11-18 07:08] LABS: BASOPHILS # (AUTO) 0.1 K/uL (0.0-0.2); BASOPHILS % (AUTO) 0.7 % (0.0-2.0); EOSINOPHILS # (AUTO) 0.1 K/uL (0.0-0.4); EOSINOPHILS % (AUTO) 0.6 % (0.0-4.0); LYMPHOCYTES # (AUTO) 0.6 K/uL (1.0-5.5); LYMPHOCYTES % (AUTO) 4.9 % (20.5-51.5); MEAN CORPUSCULAR HEMOGLOBIN 32 pg (27-31); MEAN CORPUSCULAR HGB CONC 34 % (32-36); MEAN CORPUSCULAR VOLUME 93 fL (79.0-98.0); MONOCYTES # (AUTO) 0.6 K/uL (0.0-1.0); MONOCYTES % (AUTO) 4.8 % (1.7-9.3); NEUTROPHILS # (AUTO) 10.4 K/uL (1.8-7.7); RED BLOOD CELL COUNT(AUTO) 2.02 MIL/uL (4.2-6.2); RED CELL DISTRIBUTION WIDTH 16.8 % (9.0-15.0); WHITE BLOOD COUNT (AUTO) 11.7 K/uL (4.8-10.8)
[2021-11-18 07:39] LABS: INR 1.2 (0.80-1.20)
--- NOTE | 2021-11-18 08:00 | NUR ---
Received patient with stable vital signs and on ventillator with prescribed settings.
[2021-11-18] MEDS: SUCRALFATE 1 GM/10 ML UDC GT SCH (08:27)
[2021-11-18] MEDS: TAMSULOSIN HCL 0.4 MG CAP PO SCH (08:27)
[2021-11-18 08:46] LABS: HEMATOCRIT 18.8 % (36-54); HEMOGLOBIN 6.4 g/dL (14.0-18.0); PLATELET COUNT (AUTO) 25 K/uL (130-430)
[2021-11-18 11:06] LABS: HEPATITIS B SURFACE AG Negative (Negative); HEPATITIS C VIRUS AB <0.1 s/co ratio (0.0-0.9)
[2021-11-18] MEDS: LEVOFLOXACIN 250 MG/D5W 50 ML IV SCH (11:13)
[2021-11-18] MEDS: MORPHINE SULFATE IN 0.9 % NACL 100 ML IV PRN (12:16)
[2021-11-18] MEDS: INSULIN REGULAR, HUMAN 100 UNITS/ML, 3 ML VIAL (humuLIN R) SUBCUT PRN ×2 (12:48→18:46)
[2021-11-18] MEDS: metroNIDAZOLE 250 mg/NS 50 ML IV SCH ×2 (14:00→21:44)
[2021-11-18] MEDS: FLUCONAZOLE 200 mg/ NS 100 ML IV SCH (14:30)
--- NOTE | 2021-11-18 18:32 | NUR ---
Endorsed to [facility] with stable vital signs and continuous cardiac monitoring. @nd unit of PRBC still infusing with no reactions noted.
--- NOTE | 2021-11-18 20:00 | NUR ---
rECEIVED PATIENT ORALLY INTUBATED , AC 22, TV500, FIO2 40%, PEEP 8. BILATERAL LUNGS WITH RHONCHI. NEOSYNEPHRINE IS INFUSING AT 0.2 MCG/KG/MIN, PRECEDEX AT 1 MCG/KG/HR AND MORPHINE DRIP AT 8MG/HR. VIA LEFT IJ TLC. NGT FEEDING OF VITAL AF AT 15ML/HR. HOB ELEVATED. ON ASPIRATION PRECAUTION.
[2021-11-19] VITALS (43 sets, daily range): BP systolic 102–169
[2021-11-19] MEDS: IPRATROPIUM/ALBUTEROL SULFATE 3 ML AMPUL.NEB (DUONEB) INH SCH ×4 (01:05→19:45)
[2021-11-19] MEDS: MORPHINE SULFATE IN 0.9 % NACL 100 ML IV PRN ×2 (01:24→16:16)
[2021-11-19] MEDS: INSULIN REGULAR, HUMAN 100 UNITS/ML, 3 ML VIAL (humuLIN R) SUBCUT PRN ×3 (01:45→23:29)
[2021-11-19] MEDS: DEXMEDETOMIDINE HCL 400 MCG in NS 96 ML IV PRN ×5 (01:50→18:39)
--- NOTE | 2021-11-19 02:00 | NUR ---
PATIENT DESATURATES AT TIMES. PRECEDEX INCREASED TO 1.2 MCG/KG/HOUR, RASS -2. COMPLETE BED BATH GIVEN. ALL LINEN CHANGED. AFEBRILE. BLOOD PRESSURE STABLE WITH NEOSYNEPHRINE AT 0.2 MCG/KG/MIN. NO SIGNS AND SYMPTOMS OF DISCOMFORT, MORPHINE AT 8MG/HR.
[2021-11-19] MEDS: metroNIDAZOLE 250 mg/NS 50 ML IV SCH ×3 (05:12→22:49)
[2021-11-19] MEDS: HYDROCORTISONE SOD SUCC 100 MG/2 ML VIAL IVP SCH ×3 (05:13→22:51)
[2021-11-19] MEDS: METOCLOPRAMIDE HCL 10 MG/2 ML VIAL IVP SCH ×3 (05:14→22:50)
[2021-11-19] MEDS: SUCRALFATE 1 GM/10 ML UDC GT SCH ×2 (05:44→16:15)
[2021-11-19 06:28] LABS: INR 1.2 (0.80-1.20); PROTHROMBIN TIME 12.8 SECS (9.5-12.5)
[2021-11-19 07:06] LABS: BASOPHILS # (AUTO) 0.1 K/uL (0.0-0.2); BASOPHILS % (AUTO) 0.3 % (0.0-2.0); HEMOGLOBIN 8.9 g/dL (14.0-18.0); LYMPHOCYTES # (AUTO) 0.6 K/uL (1.0-5.5); LYMPHOCYTES % (AUTO) 3.6 % (20.5-51.5); MEAN CORPUSCULAR HEMOGLOBIN 30 pg (27-31); MEAN CORPUSCULAR HGB CONC 33 % (32-36); MEAN CORPUSCULAR VOLUME 93 fL (79.0-98.0); MONOCYTES # (AUTO) 0.8 K/uL (0.0-1.0); NEUTROPHILS # (AUTO) 14.6 K/uL (1.8-7.7); NEUTROPHILS % (AUTO) 91.1 % (40.0-70.0); RED BLOOD CELL COUNT(AUTO) 2.92 MIL/uL (4.2-6.2); RED CELL DISTRIBUTION WIDTH 16.1 % (9.0-15.0); WHITE BLOOD COUNT (AUTO) 16.1 K/uL (4.8-10.8)
[2021-11-19 08:14] LABS: PLATELET COUNT (AUTO) 10 K/uL (130-430)
--- NOTE | 2021-11-19 08:27 | NUR ---
At 0827 Dr. Suárez was called for platelets result- 10.
[2021-11-19] MEDS: TAMSULOSIN HCL 0.4 MG CAP PO SCH (09:42)
[2021-11-19] MEDS: LEVOFLOXACIN 250 MG/D5W 50 ML IV SCH (10:36)
--- NOTE | 2021-11-19 11:50 | NUR ---
RT NOTES Attempted to titrate FIO2 to 0.35, but pt's sat decreased to below target sat. FIO2 back to 0.40.
[2021-11-19] MEDS: FLUCONAZOLE 200 mg/ NS 100 ML IV SCH (14:04)
[2021-11-19] MEDS: ACETAMINOPHEN 325 MG TABLET PO PRN (14:54)
--- NOTE | 2021-11-19 15:29 | NUR ---
Care assumed from outgoing RN, patient remains stable in no acute distress and or discomfort. Cooling measures remain in place.
--- NOTE | 2021-11-19 16:00 | NUR ---
Patient repositioned with pillow support, patient remains febrile with Temporal temp 100.1, cooling measures continues
--- NOTE | 2021-11-19 16:12 | NUR ---
at 0900- . Dr Richardson was here and informed platelet is 10 and ordered i unit of plaletpheresi
--- NOTE | 2021-11-19 17:54 | NUR ---
[place] catheter care provided with CHG wipes, patient tolerated well.
[2021-11-19 17:59] LABS: ALBUMIN 1.4 g/dL (3.4-4.8); CREATININE 1.76 mg/dL (0.55-1.30); POTASSIUM 4.4 mmol/L (3.5-5.1); TOTAL BILIRUBIN 5.5 mg/dL (0.0-1.0)
[2021-11-19 18:17] LABS: CALCIUM 6.9 mg/dL (8.4-11.0)
--- NOTE | 2021-11-19 18:23 | NUR ---
CRITICAL LAB: Betty from Laboratory called with critical lab value, Medical record number and patient name verified. Read back of values done. Paged Dr. May, pending return call.
--- NOTE | 2021-11-19 18:34 | NUR ---
Dr. May aware of labs, new orders obtained
[2021-11-19] MEDS: D5W 1,000 ML IV SCH (19:11)
--- NOTE | 2021-11-19 19:15 | NUR ---
Closing Note: Report given to incoming NOC RN, all cares endorsed.
--- NOTE | 2021-11-19 19:30 | NUR ---
Pt report received. Pt lethargic, responds to painful stimuli. Mechanically ventilated with 7.5 ETT, A/C, 22, 500, 40%, 8. NGT with Vital A/F 1.2 at 15 mL/hr, no residual noted. Rate increased to 20 mL/hr. LIJ patent and secure with Neosynephrine drip at 0.1 mcg/kg/hr, Precedex drip at 1.2 mcg/hr, Morphine drip 6 mg/hr, D5 at 125 mL/hr, and platelet transfusion at 118 mL/hr. Paolo cath to RIJ. 20 GA PIV Left wrist. 3+ pitting edema with serous drainage to BUE. Scrotal edema noted. F/C patent and secure with samreen urine. VSS, NAD.
[2021-11-19] MEDS ORDERED: CALCIUM GLUCONATE 2 GM in NS 100 ML IV ONE (20:00)
[2021-11-20] VITALS (35 sets, daily range): BP systolic 85–142
[2021-11-20] MEDS: D5W 1,000 ML IV SCH ×2 (00:03→09:36)
[2021-11-20] MEDS: DEXMEDETOMIDINE HCL 400 MCG in NS 96 ML IV PRN ×7 (00:07→21:44)
[2021-11-20] MEDS: IPRATROPIUM/ALBUTEROL SULFATE 3 ML AMPUL.NEB (DUONEB) INH SCH ×4 (01:05→19:48)
[2021-11-20] MEDS: metroNIDAZOLE 250 mg/NS 50 ML IV SCH (06:25)
[2021-11-20] MEDS: METOCLOPRAMIDE HCL 10 MG/2 ML VIAL IVP SCH ×3 (06:26→21:22)
[2021-11-20] MEDS: HYDROCORTISONE SOD SUCC 100 MG/2 ML VIAL IVP SCH ×3 (06:26→21:22)
[2021-11-20] MEDS: INSULIN REGULAR, HUMAN 100 UNITS/ML, 3 ML VIAL (humuLIN R) SUBCUT PRN ×3 (06:29→18:03)
[2021-11-20] MEDS: SUCRALFATE 1 GM/10 ML UDC GT SCH ×2 (06:34→16:33)
[2021-11-20 07:05] LABS: BASOPHILS # (AUTO) 0.1 K/uL (0.0-0.2); BASOPHILS % (AUTO) 0.6 % (0.0-2.0); LYMPHOCYTES # (AUTO) 1.2 K/uL (1.0-5.5); LYMPHOCYTES % (AUTO) 6.3 % (20.5-51.5); MEAN CORPUSCULAR HEMOGLOBIN 30 pg (27-31); MEAN CORPUSCULAR HGB CONC 33 % (32-36); MEAN CORPUSCULAR VOLUME 92 fL (79.0-98.0); MONOCYTES # (AUTO) 0.9 K/uL (0.0-1.0); NEUTROPHILS # (AUTO) 16.3 K/uL (1.8-7.7); NEUTROPHILS % (AUTO) 88.1 % (40.0-70.0); RED BLOOD CELL COUNT(AUTO) 2.23 MIL/uL (4.2-6.2); RED CELL DISTRIBUTION WIDTH 16.5 % (9.0-15.0); WHITE BLOOD COUNT (AUTO) 18.5 K/uL (4.8-10.8)
--- NOTE | 2021-11-20 07:22 | NUR ---
Pt report given to JT Edgar.
[2021-11-20 08:04] LABS: ALBUMIN 0.9 g/dL (3.4-4.8); CALCIUM 7.2 mg/dL (8.4-11.0); CREATININE 1.79 mg/dL (0.55-1.30); POTASSIUM 4.6 mmol/L (3.5-5.1); TOTAL BILIRUBIN 3.8 mg/dL (0.0-1.0)
[2021-11-20 08:13] LABS: HEMATOCRIT 20.5 % (36-54); HEMOGLOBIN 6.8 g/dL (14.0-18.0); PLATELET COUNT (AUTO) 13 K/uL (130-430)
[2021-11-20] MEDS: TAMSULOSIN HCL 0.4 MG CAP PO SCH (09:36)
[2021-11-20] MEDS: LEVOFLOXACIN 250 MG/D5W 50 ML IV SCH (11:03)
--- NOTE | 2021-11-20 11:19 | NUR ---
MD DR HYMAN IN THE PT'S ROOM, PT FOR CT SCAN OF THE HEAD, ALOC. PT ON MORPHINE DRIP, ORDERED TO DISCONTINUE MORPHINE AND CARRIED OUT.
[2021-11-20] MEDS ORDERED: LORazepam 2 MG/ML VIAL IVP PRN (11:30)
[2021-11-20] MEDS: D5NS 1,000 ML IV SCH (12:01)
[2021-11-20] MEDS: PHENYLEPHRINE HCL 50 MG in NS 245 ML IV PRN ×2 (13:03→23:38)
--- NOTE | 2021-11-20 15:00 | NUR ---
Nutrition F/U Admitting Diagnosis: SOB, fever, ALOC Reviewed Pertinent Medical/Surgical Hx Medical Record ICU Rounds Primary RN Patient Medical History Comment: PMH: COVID-19 pneumonia (August-September 2021 per son report), T2DM, and dementia per physician notes. Pt also found w/ sepsis, lactic acidemia, fevers, acute respiratory failure, acute exacerbation of COPD, CAP, r/o aspiration pneumonia, ALOC, anemia, and thrombocytopenia per physician notes Per EMR review 11/15: pt continues intubated/sedated/unresponsive, possible leukemia, CHF, pancytopenia, pneumonia, sepsis, unstable condition Per EMR review 11/20: pt has multiorgan failure w/ severe anemia, possible acute leukemia, acute respiratory failure, on ventilator, unresponsive to medical treatment so far, paroxysmal atr fibr d/t severe sepsis, and acute on chronic kidney failure Subjective Information: RD attended ICU rounds this morning. Primary RN reported that pt will likely receive 2 units of PRBC d/t low H/H; has been bradycardic; no longer on levophed, on precedex and norsynephrine; edematous; continues on vent support; tolerating TF at current goal rate. RD visited pt at bedside -- TF Vital AF 1.2 seen infusing at 25 ml/hr, 39 ml infused, providing 47 kcal. Bedscale wt taken: 214#/97.3 kg -- likely r/t edema versus true wt gain from minimal EN support -- wt up 48# compared to admission wt. Per EMR review, TF Intakes: 400 ml 11/20; TF Rate: 25 ml/hr 11/20; GRV: 10 ml /; LBM x1 11/11 -- no BM noted in 9 days; Tom scale: 7 w/ wounds noted to later L knee and posterior buttocks. Ronald BID is not warranted at this time d/t sepsis. Pt is not meeting optimal nutritional needs, however, pt's condition appears very critical and increase in TF rate may not be warranted. Current Diet Order/Nutrition Support: Vital AF 1.2 at 25 ml/hr (goal rate) ml/hr, Free Water Flush: 250 q4h via NGT x4 days Pertinent Medications: Reviewed Pertinent Labs: Na 159 H, BG 268 H, POC BG 284 H, ALB 0.9 L, WBC 18.5 H, Ca 7.2 L, Phos 1.8 L, Mg 3 H, Plt 13 L, Hgb 6.8 L, Hct 20.5 L Height: 5'7" Weight: 166#/75.296 kg (stable since 11/06) Body Mass Index: 26 kg/m2 (normal for GERIAT age) Usual Weight: 180# %UBW: 92 [place]/Adjusted Body Weight: 148#/67.3 kg %IBW: 112 Recent Weight Change: Yes -- Unintentional 14# wt loss/8% wt change within 2 mo NEW Estimated Energy Expenditure (kcals/day) 1950 (PSU d/t critical illness; Ve: 13, Tmax: 38'C) Estimated Protein Required (g/day) 113-151 (1.5-2 gm/kg CBW d/t critical illness, intubated, sepsis) Estimated Fluid Required (l/day) Per physician d/t CHF Problem/Etiology/Signs/Symptoms * Increased nutritional needs R/T metabolic demands AEB estimated nutritional requirements for critical illness and elevated WBC lab values. *Ongoing * EN intolerance r/t suspected GI motility issues a/e/b GRV >400mL, vomiting. *Ongoing, no longer vomiting, however, high GRV Expected Outcomes/Goals - Monitor tolerance to EN support w/ goal of pt meeting >80% of estimated Nutritional needs, labs trending WNL, normal GI function, and skin integrity/wt maintenance Dietitian Recommendations * Continue Vital AF 1.2 at 25 ml/hr (goal rate) ml/hr, Free Water Flush: 250 q4h via NGT Provides: 720 kcal/day, 45 gm protein/day, and 1987 ml free water/day Meets: 36% of lower end of estimated caloric needs and 40% of lower end of estimated protein needs * Continue Reglan for improved gut motility * Bowel regimen d/t no documented BM >1 week * Nutrition Consult if pt's condition improves and modification of TF is warranted Follow Up Moderate Risk: F/U in 3-5 days Addendum: 11/20/21 at [address] CORRECTION: * EN intolerance r/t suspected GI motility issues a/e/b GRV >400mL, vomiting. *No longer applicable Addendum: 11/21/21 at [address] Nutrition Consult received for wound 11/21/21 0457
[2021-11-20] MEDS: FLUCONAZOLE 200 mg/ NS 100 ML IV SCH (15:10)
--- NOTE | 2021-11-20 15:10 | NUR ---
Dietitian Recommendations * Continue Vital AF 1.2 at 25 ml/hr (goal rate) ml/hr, Free Water Flush: 250 q4h via NGT Provides: 720 kcal/day, 45 gm protein/day, and 1987 ml free water/day Meets: 36% of lower end of estimated caloric needs and 40% of lower end of estimated protein needs * Continue Reglan for improved gut motility * Bowel regimen d/t no documented BM >1 week * Nutrition Consult if pt's condition improves and modification of TF is warranted LP, MS, RD Please refer to Nutrition F/U for details.
[2021-11-20] MEDS: ACETAMINOPHEN 325 MG TABLET PO PRN (15:13)
--- NOTE | 2021-11-20 17:12 | NUR ---
TO CT SCAN TRANSPORTED VIA BED, PORTABLE [employer] HELICOPTER AND BP MONITOR, WITH PORTABLE PULSE OXIMETER, PT BAGGED BY Lg THRU ETT.
--- NOTE | 2021-11-20 17:35 | NUR ---
TO ICU RETURNED TO ROOM 4.
--- NOTE | 2021-11-20 18:25 | NUR ---
BT INITIATION: PLATELETS Consent signed per family agreeing to administration of blood. Blood has been typed and crossmatched. Blood sent from blood bank. Information on unit of blood checked against patient wristband at bedside by two nurses. All information matches. Patient or responsible alliance party informed of potential complications associated with blood transfusion. Informed of possible transfusion reaction symptoms. Aware of need to notify nurse at once of itching, shortness of breath, flushing, feeling of impending doom, or other symptoms not previously present. Vital signs taken within 5 minutes prior to initiation of transfusion. RN will remain with patient for first 15 minutes of transfusion at which time vital signs will be re-assessed.
[2021-11-20] MEDS: LORazepam 2 MG/ML VIAL IVP PRN (18:50)
[2021-11-20] MEDS ORDERED: NOREPINEPHRINE 4 MG/4 ML VIAL IV ONE (19:05)
--- NOTE | 2021-11-20 19:30 | NUR ---
PM SHIFT ASSESSMENT Patient is sedated on vent, tolerating current vent settings. SR on monitor. IVF infusing to LEFT IJ. Safety precautions in place, call light within reach. Will continue to monitor.
[2021-11-20] MEDS ORDERED: PHENYLEPHRINE HCL 10 MG/ML VIAL (NEOSYNEPHRINE) ONE ×2 (21:23→23:36)
[2021-11-21] VITALS (31 sets, daily range): BP systolic 84–132
[2021-11-21] MEDS: INSULIN REGULAR, HUMAN 100 UNITS/ML, 3 ML VIAL (humuLIN R) SUBCUT PRN ×4 (00:04→18:02)
[2021-11-21] MEDS: DEXMEDETOMIDINE HCL 400 MCG in NS 96 ML IV PRN ×6 (04:44→21:12)
[2021-11-21] MEDS: PHENYLEPHRINE HCL 50 MG in NS 245 ML IV PRN ×2 (04:47→18:42)
[2021-11-21] MEDS: METOCLOPRAMIDE HCL 10 MG/2 ML VIAL IVP SCH ×3 (05:56→22:33)
[2021-11-21] MEDS: HYDROCORTISONE SOD SUCC 100 MG/2 ML VIAL IVP SCH ×3 (05:56→22:34)
[2021-11-21] MEDS: SUCRALFATE 1 GM/10 ML UDC GT SCH ×2 (06:10→17:34)
[2021-11-21 06:37] LABS: BASOPHILS # (AUTO) 0.1 K/uL (0.0-0.2); BASOPHILS % (AUTO) 0.4 % (0.0-2.0); HEMATOCRIT 25.8 % (36-54); HEMOGLOBIN 8.7 g/dL (14.0-18.0); LYMPHOCYTES % (AUTO) 5.1 % (20.5-51.5); MEAN CORPUSCULAR HEMOGLOBIN 29 pg (27-31); MEAN CORPUSCULAR HGB CONC 34 % (32-36); MEAN CORPUSCULAR VOLUME 88 fL (79.0-98.0); MONOCYTES # (AUTO) 0.8 K/uL (0.0-1.0); NEUTROPHILS # (AUTO) 17.9 K/uL (1.8-7.7); NEUTROPHILS % (AUTO) 90.5 % (40.0-70.0); RED BLOOD CELL COUNT(AUTO) 2.95 MIL/uL (4.2-6.2); WHITE BLOOD COUNT (AUTO) 19.8 K/uL (4.8-10.8)
[2021-11-21 07:01] LABS: INR 1.5 (0.80-1.20); PROTHROMBIN TIME 14.9 SECS (9.5-12.5)
--- NOTE | 2021-11-21 07:15 | NUR ---
ENDORSEMENT Patient care endorsed to JT Edgar.
[2021-11-21 07:17] LABS: ALBUMIN 0.7 g/dL (3.4-4.8); CREATININE 2.14 mg/dL (0.55-1.30); TOTAL BILIRUBIN 3.2 mg/dL (0.0-1.0)
[2021-11-21] MEDS: D5NS 1,000 ML IV SCH (07:30)
[2021-11-21] MEDS: IPRATROPIUM/ALBUTEROL SULFATE 3 ML AMPUL.NEB (DUONEB) INH SCH ×3 (07:31→19:35)
[2021-11-21 07:35] LABS: CALCIUM 6.9 mg/dL (8.4-11.0)
[2021-11-21 07:36] LABS: PLATELET COUNT (AUTO) 11 K/uL (130-430)
--- NOTE | 2021-11-21 07:41 | NUR ---
AM ASSESSMENT PT INTUBATED, ORAL CARE RENDERED, TEMP 98.6, ON PRECEDEX DRIP AT 0.6 MCG/KG/MIN, NEOSYNEPHRINE 0.6 MCG/KG/MIN, REPOSITIONED IN BED. LAB RESULTS RECEIVED, PAGED DR HINKLE FOR NOTIFICATION.
[2021-11-21] MEDS: TAMSULOSIN HCL 0.4 MG CAP PO SCH (08:07)
--- NOTE | 2021-11-21 10:16 | NUR ---
MD DR HINKLE CALLED BACK. AWARE OF PLATELET COUNT 11, SODIUM 161, CHLORIDE 127, CALCIUM 6.9, BUN 115. NO NEW ORDERS RECEIVED.
[2021-11-21] MEDS: LEVOFLOXACIN 250 MG/D5W 50 ML IV SCH (10:59)
--- NOTE | 2021-11-21 11:41 | NUR ---
Called Dr. Jonathan Marques with a consult,spoke with Gaurav from the exchange
--- NOTE | 2021-11-21 11:48 | NUR ---
SURGEON DR BENITEZ CALLED. HE PLANS TO DO TRACHEOSTOMY WITH PEG TUBE PLACEMENT THIS COMING TUESDAY.
[2021-11-21] MEDS: FLUCONAZOLE 200 mg/ NS 100 ML IV SCH (13:45)
[2021-11-21] MEDS: LORazepam 2 MG/ML VIAL IVP PRN (14:09)
[2021-11-21] MEDS: NOREPINEPHRINE BITARTRATE 8 MG in D5W 242 ML IV PRN (14:47)
[2021-11-22] VITALS (30 sets, daily range): BP systolic 0–144
[2021-11-22] MEDS: IPRATROPIUM/ALBUTEROL SULFATE 3 ML AMPUL.NEB (DUONEB) INH SCH ×4 (01:09→19:00)
[2021-11-22] MEDS: D5NS 1,000 ML IV SCH (03:30)
[2021-11-22] MEDS: LORazepam 2 MG/ML VIAL IVP PRN (04:18)
[2021-11-22] MEDS: METOCLOPRAMIDE HCL 10 MG/2 ML VIAL IVP SCH ×3 (05:53→22:05)
[2021-11-22] MEDS: HYDROCORTISONE SOD SUCC 100 MG/2 ML VIAL IVP SCH ×3 (05:54→21:40)
--- NOTE | 2021-11-22 06:05 | NUR ---
rt notes 0605 NOC RN increased fio2 to 100% as to pt was desaturating.
[2021-11-22] MEDS ORDERED: METOPROLOL TARTRATE 5 MG/5 ML VIAL ONE (06:27)
[2021-11-22] MEDS ORDERED: METOPROLOL TARTRATE 5 MG/5 ML VIAL IVP ONE (06:30)
[2021-11-22 06:54] LABS: BASOPHILS # (AUTO) 0.2 K/uL (0.0-0.2); BASOPHILS % (AUTO) 0.8 % (0.0-2.0); EOSINOPHILS # (AUTO) 0.1 K/uL (0.0-0.4); EOSINOPHILS % (AUTO) 0.4 % (0.0-4.0); HEMATOCRIT 22.2 % (36-54); HEMOGLOBIN 7.2 g/dL (14.0-18.0); LYMPHOCYTES # (AUTO) 1.2 K/uL (1.0-5.5); MEAN CORPUSCULAR HEMOGLOBIN 30 pg (27-31); MEAN CORPUSCULAR HGB CONC 33 % (32-36); MEAN CORPUSCULAR VOLUME 91 fL (79.0-98.0); MONOCYTES # (AUTO) 0.5 K/uL (0.0-1.0); MONOCYTES % (AUTO) 2.7 % (1.7-9.3); NEUTROPHILS # (AUTO) 17.4 K/uL (1.8-7.7); NEUTROPHILS % (AUTO) 90.1 % (40.0-70.0); RED BLOOD CELL COUNT(AUTO) 2.44 MIL/uL (4.2-6.2); RED CELL DISTRIBUTION WIDTH 18.3 % (9.0-15.0); WHITE BLOOD COUNT (AUTO) 19.3 K/uL (4.8-10.8)
[2021-11-22] MEDS: SUCRALFATE 1 GM/10 ML UDC GT SCH ×2 (07:00→17:08)
[2021-11-22 07:22] LABS: PLATELET COUNT (AUTO) 14 K/uL (130-430)
[2021-11-22 07:31] LABS: C-REACTIVE PROTEIN QUANT 36.4 mg/dL (0-0.5); CREATININE 2.71 mg/dL (0.55-1.30); PHOSPHORUS 7.5 mg/dL (2.7-4.5)
[2021-11-22 07:35] LABS: CALCIUM 6.3 mg/dL (8.4-11.0); POTASSIUM 6.1 mmol/L (3.5-5.1)
[2021-11-22] MEDS ORDERED: NOREPINEPHRINE 4 MG/4 ML VIAL IV ONE ×4 (08:01→23:24)
[2021-11-22 08:24] LABS: ERYTHROCYTE SEDIMENTATION RATE 5 MM/HR (0-15)
--- NOTE | 2021-11-22 08:36 | NUR ---
Called Dr Goode for renal consult,spoke with Maranda from the exchange [employer] public relations player today
[2021-11-22] MEDS ORDERED: SODIUM POLYSTYRENE SULFONATE 15 GM/60 ML UDBTL PO ONE (08:45)
[2021-11-22] MEDS ORDERED: POLYETHYLENE GLYCOL 3350, 17 GM/ POWD.PACK NG SCH (09:00)
[2021-11-22] MEDS: TAMSULOSIN HCL 0.4 MG CAP PO SCH (09:00)
[2021-11-22] MEDS ORDERED: NALOXONE HCL 0.4 MG/ML AMP (NARCAN) IVP PRN (09:15)
[2021-11-22] MEDS ORDERED: MORPHINE 2 MG/ML INJ. SYRINGE IVP PRN (09:15)
[2021-11-22] MEDS: PHENYLEPHRINE HCL 50 MG in NS 245 ML IV PRN ×3 (10:12→21:51)
[2021-11-22] MEDS: INSULIN REGULAR, HUMAN 100 UNITS/ML, 3 ML VIAL (humuLIN R) SUBCUT PRN ×3 (10:17→17:10)
[2021-11-22] MEDS ORDERED: VASOPRESSIN 20 UNITS in NS 99 ML IV PRN (10:30)
[2021-11-22] MEDS ORDERED: CALCIUM GLUCONATE 2 GM in NS 100 ML IV ONE (10:30)
[2021-11-22] MEDS: LEVOFLOXACIN 250 MG/D5W 50 ML IV SCH (11:00)
[2021-11-22] MEDS: NOREPINEPHRINE BITARTRATE 16 MG in D5W 234 ML IV PRN ×4 (12:12→21:44)
[2021-11-22] MEDS: FLUCONAZOLE 200 mg/ NS 100 ML IV SCH (13:36)
[2021-11-22] MEDS ORDERED: DEXTROSE 50% JECT 50 ML DISP.SYRIN IVP ONE (16:30)
[2021-11-22] MEDS ORDERED: INSULIN REGULAR, HUMAN 100 UNITS/ML, 3 ML VIAL SUBCUT ONE (16:30)
[2021-11-22] MEDS ORDERED: SODIUM BICARBONATE 8.4% JECT 100 MEQ in D5W 1,000 ML IVP SCH (17:00)
[2021-11-22] MEDS ORDERED: SODIUM BICARBONATE 8.4% JECT 100 MEQ in D5W 1,000 ML IVP ONE (17:00)
[2021-11-22] MEDS ORDERED: LevALBUTEROL HCL 1.25 MG/0.5 ML *CONC.* VIAL.NEB (XOPENEX CONC.) INH SCH (20:00)
[2021-11-22] MEDS ORDERED: LevALBUTEROL HCL 1.25 MG/0.5 ML *CONC.* VIAL.NEB (XOPENEX CONC.) INH PRN (20:00)
[2021-11-22] MEDS ORDERED: LevALBUTEROL HCL 1.25 MG/0.5 ML *CONC.* VIAL.NEB (XOPENEX CONC.) INH ONE (20:00)
[2021-11-22] MEDS ORDERED: DIGOXIN 0.5 MG/2 ML AMP IVP ONE (21:15)
[2021-11-23] VITALS: BP_SYST 134
[2021-11-23] MEDS ORDERED: ALBUMIN HUMAN 25% 50 ML IV SCH
[2021-11-23] MEDS ORDERED: ALBUMIN HUMAN 25% 100 ML IV ONE (00:23)
[2021-11-23] MEDS: INSULIN REGULAR, HUMAN 100 UNITS/ML, 3 ML VIAL (humuLIN R) SUBCUT PRN (00:50)
[2021-11-23] MEDS ORDERED: LevALBUTEROL HCL 1.25 MG/0.5 ML *CONC.* VIAL.NEB (XOPENEX CONC.) INH SCH (01:00)
[2021-11-23] MEDS ORDERED: EPINEPHrine JECT 0.1 MG/ML SYR ONE (01:05)
--- NOTE | 2021-11-23 01:10 | NUR ---
RT NOTES RESPONDED TO CODE BLUE CALLED @ 0100 DUE TO ABSENT OF PULSES. MODIFIED ACLS CODE WAS PERFORMED. PT PRONOUNCED @ 0109. ROSC NOT ACHIEVED. Addendum: 11/23/21 at 0209 by Sudarshan Juan RT Amended: Links added.
[2021-11-23 05:19] VITALS: BP_SYST 135
--- NOTE | 2021-11-23 06:52 | NUR ---
LATE ENTRY : 11/22/21 ;PATIENT WAS RECEIVED 1900 UNRESPONSIVE, VITAL SIGNS UNSTALE. MAXED OUT ON THREE PRESSORS MD NOTIFIED AND ORDER RECEIVED AND CARRIED OUT.. PATIENT WAS ALSO NOTED TO HEMORRHAGING PHONG RED BLOOD FROM ETT, RT WAS MADE AWARE. . RT CAME IN CHANGED THE TUBING AND SAID THAT PATIENT HAD BEEN BLEEDING FROM THE ETT FOR SOME DAYS. LARGE CLOTS WERE SUNTIONED FROM THE ETT, PATIENT WAS CLOSELY MONITORED. 12LEAD EKG WAS DONE PER MD,AND SENT TO MD ORDERED . A RESULT OF THAT MD CALLED AND TELEPHONE ORDERS WERE RECEIVED. PATIENT WAS MEDICATED FOR IRREGULAR HEART RATE AND CLOSELY MONITORED. PATIENT ACCU-CHECK WAS 226 AT MID NIGHT AND COVERED ORDERED. 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
== END 2021-11-23 01:09 | DRG 870 ==
LOC: SED 19:44 → SIC 22:36 → UNDOADMIN 22:36 → SIC 11-05 08:33 → SMU 11-05 10:34 → SIC 11-05 20:12
PROVIDERS: ADMIT Internal Medicine; ATTEND Internal Medicine
PROC: 30233N1 Transfusion of Nonautologous Red Blood Cells into Peripheral Vein, Percutaneous Approach (ICD-10-PCS; 2021-11-05)
PROC: 5A1955Z Respiratory Ventilation, Greater than 96 Consecutive Hours (ICD-10-PCS; principal; 2021-11-06)
PROC: 0BH17EZ Insertion of Endotracheal Airway into Trachea, Via Natural or Artificial Opening (ICD-10-PCS; 2021-11-06)
PROC: 5A09357 Assistance with Respiratory Ventilation, Less than 24 Consecutive Hours, Continuous Positive Airway Pressure (ICD-10-PCS; 2021-11-06)
PROC: 4A10X4Z Monitoring of Central Nervous Electrical Activity, External Approach (ICD-10-PCS; 2021-11-07)
PROC: 0B9J7ZX Drainage of Left Lower Lung Lobe, Via Natural or Artificial Opening, Diagnostic (ICD-10-PCS; 2021-11-07)
PROC: 0B9D7ZX Drainage of Right Middle Lung Lobe, Via Natural or Artificial Opening, Diagnostic (ICD-10-PCS; 2021-11-07)
PROC: 0B9H7ZX Drainage of Lung Lingula, Via Natural or Artificial Opening, Diagnostic (ICD-10-PCS; 2021-11-07)
PROC: 0B9F7ZX Drainage of Right Lower Lung Lobe, Via Natural or Artificial Opening, Diagnostic (ICD-10-PCS; 2021-11-07)
PROC: 30233R1 Transfusion of Nonautologous Platelets into Peripheral Vein, Percutaneous Approach (ICD-10-PCS; 2021-11-15)
PROC: 30233K1 Transfusion of Nonautologous Frozen Plasma into Peripheral Vein, Percutaneous Approach (ICD-10-PCS; 2021-11-17)
PROC: 5A12012 Performance of Cardiac Output, Single, Manual (ICD-10-PCS; 2021-11-23)
DX: A41.9 Sepsis, unspecified organism (principal); E43 Unspecified severe protein-calorie malnutrition; G93.41 Metabolic encephalopathy; J15.6 Pneumonia due to other Gram-negative bacteria; J96.01 Acute respiratory failure with hypoxia; R65.21 Severe sepsis with septic shock; J44.1 Chronic obstructive pulmonary disease with (acute) exacerbation; E87.1 Hypo-osmolality and hyponatremia; E87.0 Hyperosmolality and hypernatremia; J44.0 Chronic obstructive pulmonary disease with (acute) lower respiratory infection; N17.9 Acute kidney failure, unspecified; Z99.11 Dependence on respirator [ventilator] status; D69.6 Thrombocytopenia, unspecified; E78.5 Hyperlipidemia, unspecified; E83.39 Other disorders of phosphorus metabolism; E83.41 Hypermagnesemia; E83.52 Hypercalcemia; E87.5 Hyperkalemia; E88.09 Other disorders of plasma-protein metabolism, not elsewhere classified; I50.9 Heart failure, unspecified; D46.9 Myelodysplastic syndrome, unspecified; F03.90 Unspecified dementia, unspecified severity, without behavioral disturbance, psychotic disturbance, mood disturbance, and anxiety; I48.0 Paroxysmal atrial fibrillation; N18.9 Chronic kidney disease, unspecified; N40.0 Benign prostatic hyperplasia without lower urinary tract symptoms; R13.10 Dysphagia, unspecified; Z20.822 Contact with and (suspected) exposure to COVID-19; Z87.891 Personal history of nicotine dependence; I46.9 Cardiac arrest, cause unspecified
CPT/HCPCS: 36415; 36430; 36600; 70450-TC; 71045; 74018; 76376; 76705; 76770; 80048; 80053; 80202; 81000; 81003; 82140; 82247; 82248; 82330; 82533; 82570; 82607; 82728; 82746; 82800-TC; 82803-TC; 82962; 83010; 83540; 83550; 83605; 83615; 83735; 83880; 83935; 84100; 84302; 84443; 84484; 84550; 85007; 85025; 85027; 85044; 85384; 85610-TC; 85651-TC; 85730-TC; 86140; 86480; 86738; 86803; 86886; 86900; 86901; 86920; 87040; 87070; 87070-TC; 87081; 87086; 87205-TC; 87340; 87449; 93005; 93306; 94002; 94003; 94640; 94660; 94760; 95816; J0171; J0610; J0696; J1160; J1450; J1644; J1720; J1815; J1940; J1956; J2001; J2060; J2185; J2248; J2270; J2310; J2370; J2543; J2704; J2765; J2930; J3370; J3430; J3490; J7050; J7060; J7612; P9021; P9034; P9046; P9059